=== PATIENT | female | born 1935 | race Caucasian/White ===

== ENCOUNTER → 2017-06-26 | Day surgery (SDC) | payer OTHER ==
[2017-05-26 13:39] VITALS: Ht 166.4 cm; Wt 56.8 kg
[~2017-06-26] VITALS: Ht 166.4 cm; Wt 56.8 kg
[~2017-06-26] MED LIST: 500ML BSS 0.3ML EPI 1:1000PF IRRIG ONE; ACETAMINOPHEN 325 MG TAB PO PRN; ALPR-411 PO; AMVISC PLUS 0.8ML SYRINGE INT OCU ONE; APR25 PO; ASPI81TA28 PO; ATROPINE SULFATE 0.1 MG/ML 5ML SYR IV PRN; BISA1TAB15 PO; BRIMONIDINE TART 0.2% OP SOLN PER DROP CHARGE ONE; BSS FLUSH ONE; CARV12.5 PO; CITA20TA9 PO; CLON0.1T12 PO; CLOP1TAB15 PO; CLR10 PO; DOCU-94 PO; ENDOCOAT 0.85ML SYRINGE INT OCU ONE; EpHEDrine SULFATE INJ 50 MG/ML AMP IV PRN; EpINEphrine INJ 1MG/ML AMP 1 MG/ML AMP ONE; FEXO1TAB49 PO; FLUT0.15 NAE; LACTATED RINGER'S 1000ML 500 ML IV SCH; LEVO125T72 PO; LIDOCAINE 4% OP SOLN DROP CHARGE ONE; LIDOCAINE 4% OP SOLN DROP CHARGE OPR SCH; LIDOCAINE HCL 1% MPF 2 ML VIAL ONE; LIDOCAINE HCL 2% 2 ML VIAL (20MG/ML) ONE; LOSA100T65 PO; MIDAZOLAM HCL 1 MG/ML 2ML VIAL ONE; MOXIFLOXACIN OPH SOLN PER DROP CHARGE ONE; NTRGSL/4 UT; ONDANSETRON INJ 2 MG/ML 2 ML VIAL IV PRN; OXYC-609 PO; PANT40TA PO; POVIDONE-IODINE OP SOLN 30 ML BTL ONE; PROPARACAINE 0.5% OP SOLN PER DROP CHARGE OPR SCH; PROPOFOL IV EMULSION 10 MG/ML 20 ML VIAL IV ONE; ROSU20TA PO; SPIR25TA PO; TOBRAMYCIN/DEXAMETHASONE OPH OINT PER APPLN CHARGE ONE; VNTHFA/IN INH
[2017-06-26] MEDS: PHENYLEPHRINE HCL 2.5% OP SOLN PER DROP CHARGE OPR SCH ×2 (09:57→10:02)
[2017-06-26] MEDS: TROPICAMIDE 1% OP SOLN PER DROP CHARGE OPR SCH ×2 (09:58→10:03)
[2017-06-26] MEDS: CYCLOPENTOLATE HCL 1% OP SOLN PER DROP CHARGE OPR SCH ×2 (09:59→10:04)
[2017-06-26] MEDS: KETOROLAC 0.5% OP SOLN PER DROP CHARGE OPR SCH ×2 (10:00→10:05)
[2017-06-26] MEDS: MOXIFLOXACIN OPH SOLN PER DROP CHARGE OPR SCH ×2 (10:01→10:14)
--- NOTE | 2017-06-26 10:41 | History & Physical Bridge - SC ---
H&P Re-Evaluation Bridge Note: I have examined the patient, reviewed the History & Physical and in the interval since the performance of the History & Physical I have noted the following changes of clinical significance: No changes noted
--- NOTE | 2017-06-26 12:23 | Discharge Instructions-SurgCtr ---
Discharge Instructions Date of Service Jun 26, 2017. Visit Reason for Visit: Cataract Right Eye Discharge Discharge Diagnosis / Problem: cataract right eye Discharge Goals Goal(s): Improve function Activity Recommendations Activity Limitations: per Instructions/Follow-up section Lifting Limitations: no more than 5 pounds Anesthesia . Post Anesthesia Instructions: If you have had General Anesthesia or IV Sedation: * Do not drive today. * Resume driving when surgeon permits. * Do not make important decisions or sign legal documents today. * Call surgeon for: 1. Temperature elevations greater than 101 degrees F. 2. Uncontrollable pain. 3. Excessive bleeding. 4. Persistent nausea and vomiting. 5. Medication intolerance (nausea, vomiting or rash). * For nausea and vomiting use only clear liquids such as: tea, soda, bouillon until nausea subsides, then gradually increase diet as tolerated. * If you have any concerns or questions, call your surgeon's office. If physician is unavailable and it is an emergency, call 911 or go to the nearest emergency room. . Instructions / Follow-Up Instructions / Follow-Up ACTIVITY RECOMMENDATIONS: * Light activities * You may walk outside, read, watch television. * Mild irritation and blurred vision are common for the first few days, redness around the white part of the eye is common. MEDICATIONS: Resume previous medications unless instructed otherwise by your surgeon. Eye drops (today and tomorrow): Polytrim - one drop in operative eye every 2 hours while awake Prednisolone 1% - one drop in operative eye every 2 hours while awake Bromfenac - one drop in operative eye once daily SPECIAL CARE INSTRUCTIONS: * If any problems or concerns, please call Dr. Browne's office at . * Keep plastic shield taped over eye to sleep at night. * Keep plastic shield taped over eye except to administer eye drops. * Keep plastic shield on until office visit the following day. FOLLOW UP VISIT: Follow-up with Dr. Browne in the [place] office as scheduled. If not already scheduled, please call the office at . Diet Recommendations Home Diet: resume previous diet Procedures Procedures Performed: Right Cataract Phacoemulsification With Intraocular Lens Implant Pending Studies Studies pending at discharge: no Medical Emergencies . Who to Call and When: Medical Emergencies: If at any time you feel your situation is an emergency, please call 911 immediately. . Non-Emergent Contact Non-Emergency issues call your: [employer] . . "Provider Documentation" section prepared by Stephon Browne. .
[2017-06-26 12:25] VITALS: TEMP 36.7
--- NOTE | 2017-06-26 12:25 | [facility] Operative Report ---
Operative Report Operative Date Jun 26, 2017. Pre-Operative Diagnosis Right Eye Cataract Post-Operative Diagnosis Same Procedure(s) Performed Right Cataract Phacoemulsification With Intraocular Lens Implant Surgeon Dr Browne Loading Unit Operator Powder Charging Surgeon(s) None Estimated Blood Loss 0ml Findings cataract right eye Fluids (cc crystalloids) see anesthesia record Specimens None Drains none Anesthesia local with sedation Complication(s) None Disposition Recovery Room / PACU Implants [id number] 16.5 Indications decreased vision right eye Description of Procedure After informed consent was obtained in the holding area the patient was wheeled back to the operating room where cardiac monitoring leads and oxygen by nasal cannula was administered by Anesthesia. Gentle IV sedation was given, and the patient's right eye eye was prepped and draped in usual sterile fashion. A wire lid speculum was placed into the right eye and the operating microscope was swung into position. Using 0.12 forceps and a Supersharp blade a paracentesis port was made 2 o'clock hours away from the 9 o'clock position of the patient's right eye. 1% non-preserved Lidocaine was then injected into the anterior chamber for anesthesia. A 2.0 mm keratotome blade was then used to make a shelved clear corneal incision at the 9 o'clock position of the right eye. Amvisc was injected into the anterior chamber and a cystotome and Utrata forceps were used to perform a curvilinear capsulorrhexis. BSS on a hydrodissection cannula was used to hydrodissect the lens nucleus away from the capsular bag. The phacoemulsification handpiece was then used in a stop and chop fashion to remove the lens nucleus. The irrigation and aspiration handpiece was then used to remove the residual cortical material. Amvisc was injected into the capsular bag and anterior chamber and a Bausch [employer] Lomb MX60 16.5 Diopter intraocular lens was injected into the capsular bag. Irrigation and aspiration handpiece was used to remove the residual viscoelastic material. The wounds were hydrated and noted to be watertight. The wire lid speculum was removed from the eye. Vigamox, Brimonidine, and TobraDex ointment were placed on the eye and it was shielded. It should be noted that EndoCoat was used extensively during the case to protect the cornea endothelium. DISPOSITION: The patient tolerated the procedure well and was wheeled to the post anesthesia care unit in stable condition. I attest to the content of the Intraoperative Record and any orders documented therein. Any exceptions are noted below. I attest to the content of the Intraoperative Record and any orders documented therein. Any exceptions are noted below.
--- NOTE | 2017-06-26 12:44 | Anesthesia Progress Nt - [facility] ---
Anesthesia Post Op Note Date & Time Jun 26, 2017 at 12:44 Vital Signs Pain Intensity: 0 Vital Signs Past 12 Hours Date Time Temp Pulse Resp B/P (MAP) Pulse Ox O2 Delivery O2 Flow Rate FiO2 06/26/17 12:25 36.7 61 16 163/70 (101) 98 Room Air 06/26/17 09:46 36.9 77 18 132/70 (90) 97 Room Air Notes Mental Status: alert / awake / arousable, participated in evaluation Pt Amnestic to Procedure: Yes Nausea / Vomiting: adequately controlled Pain: adequately controlled Airway Patency, RR, SpO2: stable & adequate BP & HR: stable & adequate Hydration State: stable & adequate Anesthetic Complications: no major complications apparent
[2017-06-26 12:54] VITALS: BP 187/69; PULSE 61; O2SAT 97
== END | disposition home or self-care (01) ==
LOC: X.SURG 09:21
PROVIDERS: ATTEND Ophthalmology
DX: H25.11 Age-related nuclear cataract, right eye (principal); I10 Essential (primary) hypertension; E03.9 Hypothyroidism, unspecified; Z79.82 Long term (current) use of aspirin; Z79.899 Other long term (current) drug therapy

== ENCOUNTER 2021-05-04 19:07 | Inpatient (IN) ==
[2021-05-04] MEDS ORDERED: ACETAMINOPHEN 1,000 MG/100 ML VIAL IV STA (19:40)
[2021-05-04] MEDS ORDERED: SODIUM CHLORIDE 0.9% 1000ML 1,000 ML IV SCH (19:45)
[2021-05-04 20:23] LABS: Basophils # (auto) 0.03 K/uL (0-0.2); Basophils % (auto) 0.3 %; Eosinophils # (auto) 0.03 K/uL (0-0.5); Eosinophils % (auto) 0.3 %; Hematocrit (blood only) 39.6 % (37-47); Hemoglobin 12.6 g/dL (12.0-16.0); Immature Granulocytes # (auto) 0.09 K/uL (0.00-0.02); Immature Granulocytes % (auto) 0.9 %; Lymphocytes # (auto) 1.35 K/uL (1.2-3.4); Lymphocytes % (auto) 13.4 %; Mean Corpuscular Hgb Conc 31.8 g/dL (32-36); Mean Corpuscular Volume 94.3 fL (80-100); Mean Platelet Volume 9.9 fL (7.4-10.4); Monocytes # (auto) 0.81 K/uL (0.11-0.59); Monocytes % (auto) 8.1 %; Neutrophils # (auto) 7.73 K/uL (1.4-6.5); Platelet Count 261 K/uL (130-400); RDW Standard Deviation 51.4 fL (36.4-46.3); White Blood Count 10.04 K/uL (4.8-10.8)
[2021-05-04 20:28] LABS: INR 1.1 (0.9-1.1); Partial Thromboplastin Ratio 0.9; Partial Thromboplastin Time 24.4 Seconds (21.0-31.0); Prothrombin Time 10.9 Seconds (9.0-12.0)
--- NOTE | 2021-05-04 20:32 | XRay Report ---
XR chest 1V portable CLINICAL HISTORY: hip fx COMPARISON STUDY: Chest radiograph March 18, 2021. FINDINGS: Incidental note is made of degenerative changes of both shoulders and elevation of the don ral heads, greater on the right. Cardiomegaly is unchanged. There is pulmonary vascular congestion. A suspected small left pleural effusion is noted. IMPRESSION: 1. Small left pleural effusion with mild left basilar opacity. 2. Cardiomegaly. Pulmonary vascular congestion without overt pulmonary edema. ACT 112: Negative or not required by law. Electronically signed by: Lucian Don M.D. 05/04/2021 8:31 PM
[2021-05-04 20:42] LABS: Alanine Aminotransferase 27 U/L (12-78); Albumin Level 3.5 gm/dl (3.4-5.0); Aspartate Aminotransferase 23 U/L (15-37); BUN Creatinine Ratio 30.5 (10-20); Blood Urea Nitrogen 23 mg/dl (7-18); Calcium 8.6 mg/dl (8.5-10.1); Carbon Dioxide 26 mmol/L (21-32); Chloride 109 mmol/L (98-107); Est GFR (African American) 84.8 ml/min; Est GFR (Non-African American) 73.2 ml/min; Glucose 95 mg/dl (70-99); Potassium 4.2 mmol/L (3.5-5.1); Sodium 141 mmol/L (136-145)
[2021-05-04 20:45] LABS: Albumin Globulin Ratio 0.9 (0.9-2); Alkaline Phosphatase 75 U/L (45-117); Bilirubin,Total 0.6 mg/dl (0.2-1); Globulin 3.9 gm/dl (2.5-4.0); Total Protein 7.4 gm/dl (6.4-8.2)
--- NOTE | 2021-05-04 21:22 | CT Scan Report ---
CT pelvis wo con CLINICAL HISTORY: L hip deformity, fall, dementia. COMPARISON STUDY: CT of the pelvis March 18, 2021. TECHNIQUE: Axial images of the pelvis and hips were obtained without IV contrast. Sagittal and bond l reconstructions were viewed. Automated exposure control was utilized for the study. A dose lowerin g technique was utilized adhering to the principles of ALARA. 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 Note is made of an ac saxman moderately displaced, comminuted intertrochanteric fracture of the left femur which is new since CT of March 18, 2021. Adjacent intramuscular hemorrhage is present. No proximal right femoral fracture is noted. Old right ischiopubic ring fractures are noted. These are unchanged unchanged since prior examination. Old bilateral sacral ala fractures are present. Sigmoid diverticulosis is noted without evidence for acute diverticulitis. IMPRESSION: 1. Acute moderately displaced, comminuted intertrochanteric fracture of the left femur. Adjacent intr amuscular hemorrhage. No additional acute fractures within the pelvis or hips. 2. Old right ischiopubic ring fractures with extensive bone formation and deformity at the symphysis pubis. 3. Old bilateral sacral fractures. 4. 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 ACT 112: Negative or not required by law. Electronically signed by: Lucian Don M.D. 05/04/2021 9:21 PM
[2021-05-04 23:00] LABS: Appearance Urine Clear (Clear); Bacteria Urine Automated Negative (Negative); Bilirubin Urine Negative (Negative); Blood Urine Negative (Negative); Cast Urine Automated 0 /lpf (0-5); Color Urine Yellow; Epithelial Cell Urine Auto 20-30 /lpf (0-5); Glucose Urine UA Negative (Negative); Ketones Urine 1+ (Negative); Leukocyte Esterase Urine 1+ (Negative); Nitrite Urine Negative (Negative); Protein Urine Negative (Negative); Specific Gravity Urine 1.017 (1.000-1.030); Urobilinogen Urine Negative (Negative)
[2021-05-05] MEDS ORDERED: ONDANSETRON INJ 2 MG/ML 2 ML VIAL IV PRN ×2 (02:04→16:57)
[2021-05-05] MEDS ORDERED: ACETAMINOPHEN 325 MG TAB PO PRN (02:04)
[2021-05-05] MEDS ORDERED: POLYETHYLENE (MIRALAX) 17 GM PACK PO PRN (02:04)
--- NOTE | 2021-05-05 02:26 | History and Physical Report ---
DATE OF ADMISSION: 05/04/2021 CHIEF COMPLAINT: Status post fall and left hip, left hip fracture. HISTORY OF PRESENT ILLNESS: This is an 85-year-old female with past medical history significant for CAD, status post stent, hypertension, hypothyroidism, depression, anxiety,hx of breast cancer who lives at [facility], presents with a fall and left hip fracture. Daughter is in the room. As per the daughter, the patient has severe dementia, she can recognize family members, but 90% of the time, she does not make sense. She is on soft diet and she is supposed to walk with a walker, but she forgets to use the walker and she is falling frequentlyl. She had multiple falls. On 03/18/2021, she was in our ER and found to have chronic left and subacute sacral fractures and also old ischiopubic fractures, which are chronic, and today again, she fell and presents with left hip fracture. The patient is currently resting comfortably. The patient is very hard of hearing and has dementia, very poor historian. Denies any pain currently. As per daughter, there is no recent fever or chills. No recent cough. No recent nausea or vomiting. No diarrhea or constipation. No pain. Daughter states since January, the patient has lost a lot of weight, almost 7-8 pounds per month. ALLERGIES: ENALAPRIL, NAPROXEN. PAST MEDICAL HISTORY: As mentioned above. PAST SURGICAL HISTORY: As per daughter, the patient had cholecystectomy, right knee surgery, status post cardiac catheterization and stent placements. MEDICATIONS: The patient is on Tylenol 650 mg p.o. q. 6 hours p.r.n., Xanax 0.5 mg p.o. t.i.d., Norvasc 5 mg p.o. daily, aspirin 81 mg p.o. daily, buspirone 5 mg p.o. b.i.d., Coreg 6.25 mg p.o. b.i.d., vitamin D 25 mcg p.o. daily, citalopram 20 mg p.o. daily, Colace 100 mg p.o. b.i.d., levothyroxine 125 mcg p.o. daily, melatonin 3 mg p.o. at bedtime. FAMILY HISTORY: Noncontributory. No significant family history as per the daughter. SOCIAL HISTORY: No smoking, no alcohol. Currently living at [facility]. REVIEW OF SYSTEMS: As per HPI. Could not get complete review of system, the patient has severe dementia and hard of hearing. PHYSICAL EXAMINATION: GENERAL: The patient is old and frail, not in acute distress. VITAL SIGNS: Temperature 37.1, pulse 84, respiratory rate 15, blood pressure 117/88, oxygen 96% on room air. HEENT: Pupils equal, round and reactive to light. Oral mucosa moist. NECK: No JVD, no neck masses. CARDIOVASCULAR: S1 and S2 heard. Regular rate and rhythm. No murmur, no gallop. RESPIRATORY SYSTEM: Normal AP diameter. No accessory muscle use. No wheezing, no crackles. ABDOMEN: Soft, bowel sounds present, nontender, nondistended. CENTRAL NERVOUS SYSTEM: Alert and awake. Obeys simple commands. No facial droop seen. Speech is clear. EXTREMITIES: Left lower extremity shortened and externally rotated. No edema, no erythema seen. LABORATORY DATA: WBC 10.04, hemoglobin 12.6, hematocrit 39.6, platelets 261. PT 10.9, INR 1.1, APTT 24.4. Sodium 141, potassium 4.2, chloride 109, bicarbonate 26, BUN 23, creatinine 0.75, serum glucose 95, calcium 8.6, total bilirubin 0.6, AST 23, ALT 27, alkaline phosphatase 75. Urinalysis, +1 ketones, +1 leukocyte esterase. SARS-CoV-2 PCR negative. Chest x-ray, small left pleural effusion with mild left basilar opacity. Pelvic CT: Acute moderately displaced comminuted intertrochanteric fracture of the left femur, adjacent intramuscular hemorrhage. Old right ischiopubic ring fractures with extensive bone formation deformity of the symphysis pubis. Old bilateral sacral fractures, possible avascular necrosis of the femoral heads. EKG: Sinus rhythm with PACs and aberrant conduction at the rate of 79. ASSESSMENT AND PLAN: This is an 85-year-old female who presents with fall. 1. Fall and left hip fracture. . As per the daughter, the patient also had breast cancer diagnosed on right sided breast in November of 2020 and currently in hospice care, they are not pursuing any treatment. Daughter states questionable mass in the brain in February CAT scan, but they are not pursuing any treatment, currently in hospice care. Daughter wants to discuss with orthopedics about surgery. The patient should be at least moderate to high risk for infection because of her multiple comorbid conditions. We will keep her n.p.o., IV fluids, pain control, monitor in the medical floor. 2. History of coronary artery disease, status post stent. Continue Coreg, aspirin. 3. History of hypertension: Continue amlodipine and Coreg. We will monitor blood pressure. 4. Hypothyroidism. Continue Synthroid. 5. History of anxiety and depression: Continue citalopram and buspirone. 6. History of breast mass and also brain mass. Family is not pursuing any further evaluation and treatments, currently under hospice care at [facility]. 7. Severe dementia. Monitor for any delirium. The patient is on soft diet. Supposed to walk with a walker. 8. Deep venous thrombosis prophylaxis. Could not place on anticoagulation because of planned procedure and could not put the patient on any sequential compression devices because of hip fracture. To Place on anticoagulation as soon as when feasible. DISPOSITION: Admit to medical floor. PT/OT prior to discharge. Social service to help with discharge planning. CODE STATUS: DNR/DNI as per discussion with the daughter. Job ID: [id number] MTDD
[2021-05-05] MEDS: D5W AND NSS 1,000 ML IV SCH ×2 (02:34→14:55)
[2021-05-05] MEDS: carvediloL 6.25 MG TAB PO SCH ×3 (03:46→20:59)
[2021-05-05] MEDS: LEVOTHYROXINE SODIUM 125 MCG TABLET PO SCH (03:46)
[2021-05-05] MEDS: MoRPHine SULFATE 2 MG/ML CARP IV PRN ×2 (03:49→20:57)
[2021-05-05 06:20] LABS: Basophils # (auto) 0.02 K/uL (0-0.2); Basophils % (auto) 0.2 %; Hematocrit (blood only) 34.5 % (37-47); Hemoglobin 11.2 g/dL (12.0-16.0); Immature Granulocytes # (auto) 0.05 K/uL (0.00-0.02); Immature Granulocytes % (auto) 0.6 %; Lymphocytes # (auto) 0.99 K/uL (1.2-3.4); Lymphocytes % (auto) 11.7 %; Mean Corpuscular Hemoglobin 30.4 pg (25-34); Mean Corpuscular Hgb Conc 32.5 g/dL (32-36); Mean Corpuscular Volume 93.5 fL (80-100); Mean Platelet Volume 9.9 fL (7.4-10.4); Monocytes # (auto) 1.04 K/uL (0.11-0.59); Monocytes % (auto) 12.2 %; Neutrophils # (auto) 6.39 K/uL (1.4-6.5); Neutrophils % (auto) 75.3 %; Platelet Count 228 K/uL (130-400); RDW Coefficient of Variation 14.7 % (11.5-14.5); RDW Standard Deviation 50.3 fL (36.4-46.3); Red Blood Count 3.69 M/uL (4.2-5.4); White Blood Count 8.49 K/uL (4.8-10.8)
[2021-05-05 06:52] LABS: BUN Creatinine Ratio 25.9 (10-20); Blood Urea Nitrogen 20 mg/dl (7-18); Calcium 8.7 mg/dl (8.5-10.1); Carbon Dioxide 26 mmol/L (21-32); Chloride 108 mmol/L (98-107); Est GFR (African American) 82.2 ml/min; Est GFR (Non-African American) 70.9 ml/min; Glucose 151 mg/dl (70-99); Potassium 3.7 mmol/L (3.5-5.1); Sodium 140 mmol/L (136-145)
--- NOTE | 2021-05-05 08:31 | Orthopedic Consultation ---
Date of Consultation May 05, 2021 Assessment & Plan (1) Closed intertrochanteric fracture of left hip: We have ordered a left femur film to further assess the fracture. Patient will likely require left TFN pending review of these x-rays. I have discussed the patient's care with her daughter this morning. The patient was ambulating with a walker at her [facility] facility. They would like to get her back to that point if possible. We discussed that other means of treating this conservatively would be bedrest for 4 to 6 weeks and risks involved with that. They are opting for surgical intervention at this time. I have discussed the case with Dr. Finney who will see the patient later this morning for evaluation. Consult will be placed for anesthesia as well. We will keep the patient n.p.o. for now. Review pending femur films for final decision for fixation of this fracture. Thank you for this consult. Addendum: 10:44; Xrays reviewed by myself and Dr. Field. Plan for Left TFN later today. Supervising Physician Co-Signing Physician Notes Patient seen and examined. Agree with DAVID Godoy's note as above. She has a significantly displaced left intertrochanteric femur fracture after ground-level fall. I would recommend cephalomedullary nailing to stabilize this fracture, reduce pain, and improve mobility. Also noted on CT scan is a large subchondral cyst in the femoral head, likely secondary to severe osteoarthritis of the hip joint; this may require alteration of the helical blade placement intraoperatively. Patient is significantly demented, and unable to consent to surgery. The procedure was discussed with the patient's daughter and power of exit booth agent, Wendi Carvalho, who is in agreement to proceed with surgery. Risks, benefits, and alternatives of surgery were explained in detail. The surgical procedure, as well as postoperative recovery and rehabilitation, was also explained in detail. Risks include bleeding; infection; damage to surrounding structures such as nerves, blood vessels, and tendons that run in the area; persistent pain or stiffness; nonunion; malunion; hardware failure; painful prominent hardware requiring removal; or need for further surgery. The patient's daughter understands all of this and wishes to proceed with surgery. Preoperative workup was completed today, and informed consent was obtained. History of Present Illness Reason for Consultation: Left hip fracture Attending Physician: Joel Finney MD History of Present Illness This is an 85-year-old female with past medical history significant for CAD, status post stent, hypertension, hypothyroidism, depression, anxiety,hx of breast cancer who lives at [facility], presents with a fall and left hip fracture. History being taken from the chart and from the patient's daughter. Patient has been residing at [facility] on hospice care with diagnosis of breast cancer. Family has decided to not have this treated. She also was noted to have a small hypodense lesion on a CT of her head during her last ER visit in February with MRI or being recommended for follow-up. Family has stated that they are not treating this as well. She is currently a DNR status. The daughter states that she is able to ambulate with a walker but has been having some balance issues. She has had frequent falls of late. She is supposed to use the walker but oftentimes forgets to use the walker and has a fall. Patient has a history of dementia and can recognize family faces but for the most part is pleasantly confused. Patient had fallen yesterday and was obviously having discomfort in the left lower extremity. She was brought to the [facility]. CT scan of the pelvis was ordered and showed a comminuted intertrochanteric hip fracture. She was admitted under [facility] service and we have been asked to see her for her hip fracture. Currently she is lying in bed awake but pleasantly confused. She only answers a few questions at this time. She follows some commands minimally. She does not appear to be in any distress at this time. Allergies Allergy/AdvReac Type Severity Reaction Status Date / Time enalapril Allergy Unknown Verified 05/04/21 19:44 naproxen [From Naprosyn] Allergy Unknown Verified 05/04/21 19:44 Home Medications Medication Instructions Recorded Confirmed Type docusate sodium 100 mg capsule 100 mg PO BID #60 cap 03/19/21 05/04/21 Rx (Colace) acetaminophen 325 mg tablet 650 mg PO Q6 PRN MDD 3g 05/04/21 05/04/21 History acetaminophen 325 mg tablet 650 mg PO Q6 PRN MDD 3g 05/04/21 05/04/21 History alprazolam 0.5 mg tablet (Xanax) 0.5 mg PO TID 05/04/21 05/04/21 History amlodipine 5 mg tablet (Norvasc) 5 mg PO DAILY 05/04/21 05/04/21 History aspirin 81 mg chewable tablet 81 mg PO DAILY 05/04/21 05/04/21 History buspirone 5 mg tablet 5 mg PO BID 05/04/21 05/04/21 History carvedilol 6.25 mg tablet (Coreg) 6.25 mg PO BID 05/04/21 05/04/21 History cholecalciferol (vitamin D3) 25 25 mcg PO DAILY 05/04/21 05/04/21 History mcg (1,000 unit) tablet (Vitamin D3) citalopram 10 mg tablet 10 mg PO DAILY 05/04/21 05/04/21 History citalopram 20 mg tablet 20 mg PO DAILY 05/04/21 05/04/21 History levothyroxine 125 mcg tablet 125 mcg PO QAM 05/04/21 05/04/21 History melatonin 3 mg tablet 3 mg PO HS 05/04/21 05/04/21 History Patient History Medical History (Updated 05/05/21 @ 16:19 by Joel Finney MD) CAD (coronary artery disease) Depression Hypertension Hypothyroidism Surgical History History of cardiac catheterization History of cholecystectomy History of total left knee replacement (TKR) Social History Smoking Status: Never smoker Second Hand Exposure: No; Do You Dip or Chew Tobacco: No; Hx Alcohol Use: No Hx Substance Use: No Preferred Language: Albanian Communication Ability: Impaired Conveyor Technician Required: No Beliefs That Will Affect Care: None marital status: Current Living Situation: [facility] Current Living Situation Comment: dementia unit Other Information That Helps Us Care for You: No Feels Safe at Home: No Is there a partner from a previous relationship who is making you feel unsafe now?: No Any Concerns about Your Family Situation: No Would You Like to Speak to Someone About Your Situation: No Assistive Devices: Walker Assistive Devices Comment: all debices at [facility]dc Review of Systems Review of Systems: Unobtainable due to cognitive status Physical Exam Physical Exam: On examination, the patient is lying in bed awake and pleasantly confused. When asked how she is feeling, she states, "I feel fine." When asked if she is having pain in her left hip, she does not answer. She remains pleasant during the exam. On examination of her left lower extremity, she has the hip flexed at approximately 40 degrees with the left knee flexed at about 70 degrees. No range of motion of the left hip is done secondary to fracture. Stabilizing the distal femur, I am able to take her through some very minimal gentle range of motion of the left knee without apparent discomfort. She has no pain on palpation of the left knee. There is a well-healed scar from previous surgery over the knee. I am able to take her through gentle range of motion of her left ankle and she does move the ankle and toes just a little bit on her own. Right lower extremity appears benign and she does not appear to have any pain with range of motion of her hip, knee, ankle. Dorsalis pedis pulses are weak bilaterally. Both feet are warm to the touch and have good capillary refill. Upper extremities appear to be without injury. Palpation of the shoulders, elbows, and wrists appear to be nontender. There appears to be no gross motor or sensory loss seen at this time. Results & Data ([facility]) Vital Signs (Past 12 Hours) Vital Signs Temp Pulse Pulse Resp BP BP Pulse Ox 05/05/21 07:25 36.7 C 76 16 184/84 H 96 05/05/21 03:43 187/96 H 05/05/21 02:12 37.4 C 89 16 207/104 H 96 05/05/21 01:30 37.4 C 89 16 207/104 H 96 05/05/21 00:58 86 16 152/100 H 96 05/04/21 21:32 84 15 178/88 H 05/04/21 21:00 90 12 05/04/21 20:40 75 20 96 Diagnostic Findings Patient: NORMAN MIDDLETON Date: 05/04/21MR#: [id number] PALLAVI ESPINOZAAcct ID:[id number]: HEARTHSIDEBirth Date: 1935City Zip: [place], [place] [address]Umm: 85Location: EDSex: FRoom/Bed:Att Phy:Diagnosis: Hip PainPri Phy: HeartVerona birdomService Date: 05/04/21[facility] Phy:Interpreting Phy: Lucian Don MDAdmit Phy: Ordering Phy: Angela Freitas M.D. cc: ~ CT pelvis wo con CLINICAL HISTORY: L hip deformity, fall, dementia. COMPARISON STUDY: CT of the pelvis March 18, 2021. TECHNIQUE: Axial images of the pelvis and hips were obtained without IV contrast. Sagittal and coronal reconstructions were viewed. Automated exposure control was utilized for the study. A dose lowering technique was utilized adhering to the principles of ALARA. 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 Note is made of an acute moderately displaced, comminuted intertrochanteric fracture of the left femur which is new since CT of March 18, 2021. Adjacent intramuscular hemorrhage is present. No proximal right femoral fracture is noted. Old right ischiopubic ring fractures are noted. These are unchanged uncha nged since prior examination. Old bilateral sacral ala fractures are present. Sigmoid diverticulosis is noted without evidence for acute diverticulitis. IMPRESSION: 1. Acute moderately displaced, comminuted intertrochanteric fracture of the left femur. Adjacent intramuscular hemorrhage. No additional acute fractures within the pelvis or hips. 2. Old right ischiopubic ring fractures with extensive bone formation and deformity at the symphysis pubis. 3. Old bilateral sacral fractures. 4. 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
[2021-05-05] MEDS: DOCUSATE SODIUM 100 MG CAP PO SCH ×2 (08:47→20:59)
[2021-05-05] MEDS: busPIRone 5 MG TAB PO SCH ×2 (08:47→20:59)
[2021-05-05] MEDS: CITALOPRAM 20 MG TAB PO SCH (08:47)
[2021-05-05] MEDS: amLODIPine BESYLATE 5 MG TAB PO SCH (08:47)
[2021-05-05] MEDS: ALPRAZolam 0.5 MG TABLET PO SCH ×3 (08:49→20:57)
[2021-05-05] MEDS ORDERED: ASPIRIN 81 MG CHEW PO SCH (09:00)
[2021-05-05] MEDS: CHOLECALCIFEROL 1,000 UNITS 25 MCG TAB PO SCH (09:13)
--- NOTE | 2021-05-05 10:40 | XRay Report ---
XR femur LT 2V routine CLINICAL HISTORY: left hip fx COMPARISON: CT of the pelvis and hips May 04, 2021. FINDINGS: Note is made of an acute comminuted displaced intertrochanteric fracture of the left femur . Angulation at the level of the fracture is noted. No additional acute fractures within the left fem ur are noted. Left knee arthroplasty is intact. Moderate to severe osteoarthritis of the left hip is noted. Subchondral lucency within the left femoral head is present. IMPRESSION: 1. Acute comminuted displaced intertrochanteric fracture of the left femur. 2. Moderate to severe left hip osteoarthritis. Subchondral lucency within the left femoral head which could reflect avascular necrosis or subacute to chronic subchondral fracture. ACT 112: Negative or not required by law. Electronically signed by: Lucian Don M.D. 05/05/2021 10:39 AM
--- NOTE | 2021-05-05 14:07 | Anesthesiology Consultation ---
Date of Service May 05, 2021 Assessment & Plan (1) Encounter for pre-operative examination: Chart Review Chart Review: Acceptable Risk for Surgery and Patient NOT seen in Pre Admission Testing Consults Requested none History Surgery Operation Date: 05/05/21 08:20 Proposed Procedures p Left Troch Nail - Arnulfo Field M.D. Height/Weight Weight: 53.5 kg Allergies Allergy/AdvReac Type Severity Reaction Status Date / Time enalapril Allergy Unknown Verified 05/04/21 19:44 naproxen [From Naprosyn] Allergy Unknown Verified 05/04/21 19:44 Medications Home Medications Medication Instructions Recorded Confirmed Last Taken docusate sodium 100 mg capsule 100 mg PO BID #60 cap 03/19/21 05/04/21 05/04/21 08:00 (Colace) acetaminophen 325 mg tablet 650 mg PO Q6 PRN MDD 3g 05/04/21 05/04/21 Unknown acetaminophen 325 mg tablet 650 mg PO Q6 PRN MDD 3g 05/04/21 05/04/21 Unknown alprazolam 0.5 mg tablet (Xanax) 0.5 mg PO TID 05/04/21 05/04/21 05/04/21 13:00 amlodipine 5 mg tablet (Norvasc) 5 mg PO DAILY 05/04/21 05/04/21 05/04/21 08:00 aspirin 81 mg chewable tablet 81 mg PO DAILY 05/04/21 05/04/21 05/04/21 08:00 buspirone 5 mg tablet 5 mg PO BID 05/04/21 05/04/21 05/04/21 08:00 carvedilol 6.25 mg tablet (Coreg) 6.25 mg PO BID 05/04/21 05/04/21 05/04/21 17:00 cholecalciferol (vitamin D3) 25 25 mcg PO DAILY 05/04/21 05/04/21 05/04/21 08:00 mcg (1,000 unit) tablet (Vitamin D3) citalopram 10 mg tablet 10 mg PO DAILY 05/04/21 05/04/21 05/04/21 08:00 citalopram 20 mg tablet 20 mg PO DAILY 05/04/21 05/04/21 05/04/21 08:00 levothyroxine 125 mcg tablet 125 mcg PO QAM 0905/04/21 05/04/21 05:00 melatonin 3 mg tablet 3 mg PO HS 05/04/21 05/04/21 05/04/21 18:00 Active Medications Generic Name Dose Route Start Last Admin Trade Name Fox PRN Reason Stop Dose Admin Alprazolam 0.5 mg 05/05/21 09:00 05/05/21 14:55 Alprazolam 0.5 Mg Tablet PO 06/04/21 08:59 0.5 mg TID LLOYD Administration Amlodipine Besylate 5 mg 05/05/21 09:00 05/05/21 08:47 Amlodipine Besylate 5 Mg Tab PO 06/04/21 08:59 5 mg DAILY LLOYD Administration Aspirin 81 mg 05/05/21 09:00 05/05/21 08:47 Aspirin 81 Mg Chew PO 06/04/21 08:59 81 mg DAILY LLOYD Administration Buspirone HCl 5 mg 05/05/21 09:00 05/05/21 08:47 Buspirone 5 Mg Tab PO 06/04/21 08:59 5 mg BID LLOYD Administration Carvedilol 6.25 mg 05/05/21 02:04 05/05/21 08:47 Carvedilol 6.25 Mg Tab PO 06/04/21 02:03 6.25 mg BID LLOYD Administration Citalopram Hydrobromide 20 mg 05/05/21 09:00 05/05/21 08:47 Citalopram 20 Mg Tab PO 06/04/21 08:59 20 mg DAILY LLOYD Administration Docusate Sodium 100 mg 05/05/21 09:00 05/05/21 08:47 Docusate Sodium 100 Mg Cap PO 06/04/21 08:59 100 mg BID LLOYD Administration Dextrose/Sodium Chloride 1,000 mls @ 75 mls/hr 05/05/21 02:04 05/05/21 14:55 D5w And Nss IV 06/04/21 02:03 75 mls/hr .[id number] LLOYD Administration Levothyroxine Sodium 125 mcg 05/05/21 06:30 05/05/21 03:46 Levothyroxine Sodium 125 Mcg Tablet PO 06/04/21 06:29 125 mcg DAILYBB LLOYD Administration Morphine Sulfate 2 mg 05/05/21 02:04 05/05/21 03:49 Morphine Sulfate 2 Mg/Ml Carp IV 05/19/21 02:03 2 mg Q3H PRN Administration Pain Vitamin D 1,000 units 05/05/21 09:00 05/05/21 09:13 Cholecalciferol 1,000 Units 25 Mcg Tab PO 06/04/21 08:59 1,000 units DAILY LLOYD Administration NPO Date Last Intake of Fluids: 05/05/21 Date Last Intake of Solids: 05/05/21 Past Medical History Medical History (Updated 05/05/21 @ 16:19 by Joel Finney MD) CAD (coronary artery disease) Depression Hypertension Hypothyroidism Past Surgical History Surgical History History of cardiac catheterization History of cholecystectomy History of total left knee replacement (TKR) Social History Smoking Status: Never smoker Do You Dip or Chew Tobacco: No Hx Alcohol Use: No Hx Substance Use: No substance use type: does not use Physical Exam Vital Signs Last Vital Signs Temp 36.4 C L 05/05/21 15:44 Pulse 65 05/05/21 15:44 Resp 16 05/05/21 15:44 BP 158/68 H 05/05/21 15:44 Pulse Ox 95 05/05/21 15:44 Testing Laboratory Results 05/05/21 05:31 05/05/21 05:31 PT 10.9 Seconds (9.0-12.0) 05/04/21 19:56 INR 1.1 (0.9-1.1) 05/04/21 19:56 APTT 24.4 Seconds (21.0-31.0) 05/04/21 19:56 Urine Color Yellow 05/04/21 22:25 Urine Appearance Clear (Clear) 05/04/21 22:25 Urine pH 7.0 (4.5-7.5) 05/04/21 22:25 Ur Specific [place] 1.017 (1.000-1.030) 05/04/21 22:25 Urine Protein Negative (Negative) 05/04/21 22:25 Urine Glucose (UA) Negative (Negative) 05/04/21 22:25 Urine Ketones 1+ (Negative) H 05/04/21 22:25 Urine Nitrite Negative (Negative) 05/04/21 22:25 Ur Leukocyte Esterase 1+ (Negative) H 05/04/21 22:25 Urine WBC (Auto) 1-5 /hpf (0-5) 05/04/21 22:25 Urine RBC (Auto) 5-10 /hpf (0-4) H 05/04/21 22:25 U Hyaline Cast (Auto) 0 /lpf (0-5) 05/04/21 22:25 U Epithel Cells (Auto) 20-30 /lpf (0-5) H 05/04/21 22:25 Urine Bacteria (Auto) Negative (Negative) 05/04/21 22:25 Blood Type A Positive 05/04/21 19:56 Antibody Screen NEGATIVE 05/04/21 19:56 Electrocardiogram Date: 05/05/21 Findings: + NSR @ (79) PACs with aberrant conduction, when compared with ECG of 03/18/2021 aberrant conduction is now present, DE interval has decreased, borderline criteria for anterior infarct are no longer present, T wave amplitude has increased in a nterolateral leads. Chest X-Ray Date: 05/04/21 IMPRESSION: 1. Small left pleural effusion with mild left basilar opacity. 2. Cardiomegaly. Pulmonary vascular congestion without overt pulmonary edema
[2021-05-05] MEDS ORDERED: LIDOCAINE 2% 2 ML VIAL/AMP(20MG/ML) INFIL ONE (15:41)
[2021-05-05] MEDS ORDERED: ePHEDrine sulfate 50 MG/ML SYR ONE (15:41)
[2021-05-05] MEDS ORDERED: PROPOFOL IV EMULSION 10 MG/ML 20 ML VIAL IV ONE (15:41)
[2021-05-05] MEDS ORDERED: PHENYLEPHRINE 100MCG/ML 5ML SYR ONE (15:41)
[2021-05-05] MEDS ORDERED: fentaNYL citrate 100 MCG/2 ML VIAL ONE (15:41)
--- NOTE | 2021-05-05 16:06 | Hospitalist Progress Note ---
Date of Service May 05, 2021 Assessment & Plan (1) Closed intertrochanteric fracture of left hip: Plan: History of recurrent mechanical falls. She had another fall on the day of admission with fracture of the left hip The daughter wanted to have it repaired Appreciate Ortho input and recommendation for TFN of left hip today (2) Recurrent falls: Plan: Has multiple comorbid conditions as documented in H&P including breast cancer and is under hospice care at [facility] She walks with a walker (3) CAD (coronary artery disease): Plan: Had CAD with stent placement in the past No acute cardiac symptoms (4) Hypertension: Plan: Blood pressure remains on the upper side We will continue current medications (5) Hypothyroidism: Plan: Continue supplement (6) Dementia: Plan: History of severe dementia as per the daughter Minimally verbal Recognizes family members most of the time No acute confusion with recent injury DVT prophylaxis SCDs for now CODE STATUS DNR Admission and Anticipated Discharge Date Admission Date: May 04, 2021 Subjective 05/05/2021 The patient was seen and examined in medical floor She is nonverbal but not in any acute distress Review of Systems Review of Systems: Unobtainable due to cognitive status Physical Exam Physical Exam: Lying in bed comfortably Constitutional: + ill appearing and + thin Eyes: PERRL, conjunctivae normal, anicteric sclerae ENMT: external ear and nose normal, oropharynx normal Neck: trachea midline, no thyromegaly Respiratory: no respiratory distress Auscultation: + diminished lung sounds and + crackles (Minimal crackles at the bases) Cardiovascular: Rate/Rhythm: regular rate and regular rhythm; not tachycardic Heart Sounds: normal S1, normal S2 and + murmur (2/6 ESM over precordium) Gastrointestinal (Abdomen): Inspection/Auscultation: normal bowel sounds; abdomen not distended Percussion/Palpation: abdomen soft; abdomen nontender Musculoskeletal: Has shortening of the left lower extremity. Pain with movement of the left lower extremity Neurologic: Alert and awake. Nonverbal. No acute distress Results & Data Results & Data ([facility]) Vital Signs (Past 12 Hours) Vital Signs Temp Pulse Resp BP Pulse Ox 05/05/21 15:44 36.4 C L 65 16 158/68 H 95 05/05/21 07:25 36.7 C 76 16 184/84 H 96 Laboratory Results Short CBC 05/04/21 05/05/21 Range/Units 19:56 05:31 WBC 10.04 8.49 (4.8-10.8) K/uL Hgb 12.6 11.2 L (12.0-16.0) g/dL Hct 39.6 34.5 L (37-47) % Plt Count 261 228 (130-400) K/uL BMP 05/04/21 05/05/21 19:56 05:31 Sodium 141 140 Potassium 4.2 3.7 Chloride 109 H 108 H Carbon Dioxide 26 26 BUN 23 H 20 H Creatinine 0.75 0.77 Glucose 95 151 H Calcium 8.6 8.7 Liver Function 05/04/21 Range/Units 19:56 Total Bilirubin 0.6 (0.2-1) mg/dl AST 23 (15-37) U/L ALT 27 (12-78) U/L Alkaline Phosphatase 75 (45-117) U/L Albumin 3.5 (3.4-5.0) gm/dl Urine 05/04/21 Range/Units 22:25 Urine Color Yellow Urine Appearance Clear (Clear) Urine pH 7.0 (4.5-7.5) Ur Specific [place] 1.017 (1.000-1.030) Urine Protein Negative (Negative) Urine Glucose (UA) Negative (Negative) Medications Administered Current Inpatient Medications Acetaminophen (Acetaminophen 325 Mg Tab) 650 mg PO Q4H PRN PRN Reason: pain/fever Stop: 06/04/21 02:03 Alprazolam (Alprazolam 0.5 Mg Tablet) 0.5 mg PO TID LLOYD Stop: 06/04/21 08:59 Last Admin: 05/05/21 14:55 Dose: 0.5 mg Documented by: Amlodipine Besylate (Amlodipine Besylate 5 Mg Tab) 5 mg PO DAILY LLOYD Stop: 06/04/21 08:59 Last Admin: 05/05/21 08:47 Dose: 5 mg Documented by: Aspirin (Aspirin 81 Mg Chew) 81 mg PO DAILY LLOYD Stop: 06/04/21 08:59 Last Admin: 05/05/21 08:47 Dose: 81 mg Documented by: Buspirone HCl (Buspirone 5 Mg Tab) 5 mg PO BID LLOYD Stop: 06/04/21 08:59 Last Admin: 05/05/21 08:47 Dose: 5 mg Documented by: Carvedilol (Carvedilol 6.25 Mg Tab) 6.25 mg PO BID LLOYD Stop: 06/04/21 02:03 Last Admin: 05/05/21 08:47 Dose: 6.25 mg Documented by: Citalopram Hydrobromide (Citalopram 20 Mg Tab) 20 mg PO DAILY LLOYD Stop: 06/04/21 08:59 Last Admin: 05/05/21 08:47 Dose: 20 mg Documented by: Docusate Sodium (Docusate Sodium 100 Mg Cap) 100 mg PO BID LLOYD Stop: 06/04/21 08:59 Last Admin: 05/05/21 08:47 Dose: 100 mg Documented by: Dextrose/Sodium Chloride (D5w And Nss) 1,000 mls @ 75 mls/hr IV .[id number] LLOYD Stop: 06/04/21 02:03 Last Admin: 05/05/21 14:55 Dose: 75 mls/hr Documented by: Levothyroxine Sodium (Levothyroxine Sodium 125 Mcg Tablet) 125 mcg PO DAILYBB LLOYD Stop: 06/04/21 06:29 Last Admin: 05/05/21 03:46 Dose: 125 mcg Documented by: Melatonin (Melatonin 3 Mg Tab) 3 mg PO HS [facility] Stop: 06/04/21 20:59 Morphine Sulfate (Morphine Sulfate 2 Mg/Ml Carp) 2 mg IV Q3H PRN PRN Reason: Pain Stop: 05/19/21 02:03 Last Admin: 05/05/21 03:49 Dose: 2 mg Documented by: Ondansetron HCl (Ondansetron Inj 2 Mg/Ml 2 Ml Vial) 4 mg IV Q6H PRN PRN Reason: Nausea Stop: 06/04/21 02:03 Polyethylene Glycol (Polyethylene (Miralax) 17 Gm Pack) 17 gm PO DAILY PRN PRN Reason: Constipation Stop: 06/04/21 02:03 Vitamin D (Cholecalciferol 1,000 Units 25 Mcg Tab) 1,000 units PO DAILY LLOYD Stop: 06/04/21 08:59 Last Admin: 05/05/21 09:13 Dose: 1,000 units Documented by:
[2021-05-05] MEDS ORDERED: ATROPINE SULFATE 0.1 MG/ML 10ML SYR IV PRN (16:57)
[2021-05-05] MEDS ORDERED: fentaNYL citrate 100 MCG/2 ML VIAL IV PRN (16:57)
[2021-05-05] MEDS ORDERED: ePHEDrine sulfate 50 MG/ML AMP IV PRN (16:57)
[2021-05-05] MEDS ORDERED: ceFAZolin 2,000 MG/15 ML IV PUSH IV ONE (17:18)
[2021-05-05] MEDS ORDERED: ceFAZolin 2000MG 2,000 MG/15 ML SYR IV ONE (17:20)
[2021-05-05] MEDS ORDERED: BUPIVACAINE 0.5 % 5 MG/1 ML MPF 30ML VIAL ONE (17:36)
[2021-05-05] MEDS ORDERED: LIDOCAINE 1% LOCAL 20 ML VIAL ONE ×2 (17:36→17:37)
--- NOTE | 2021-05-05 17:46 | Emergency Department Note ---
History of Present Illness General Chief complaint: Hip Pain Stated complaint: Hip Pain Source: RN notes reviewed and old records reviewed (SNF records) Mode of arrival: EMS Limitations: altered mental status (Dementia) History of Present Illness Provider complaint: Fall with L hip pain This patient is an 85-year-old female who resides at the [facility] in the dementia unit. Patient apparently fell today and has been complaining of left hip pain. She is minimally verbal but does say "hurt" with any movement. She is noted to have a rotated and shortened left lower extremity. Patient is unable to give a detailed story of the fall. There is no report of loss of consciousness. History is limited secondary to the patient's dementia. Home Medications Medication Instructions Recorded Confirmed Type docusate sodium 100 mg capsule 100 mg PO BID #60 cap 03/19/21 05/04/21 Rx (Colace) acetaminophen 325 mg tablet 650 mg PO Q6 PRN MDD 3g 05/04/21 05/04/21 History acetaminophen 325 mg tablet 650 mg PO Q6 PRN MDD 3g 05/04/21 05/04/21 History alprazolam 0.5 mg tablet (Xanax) 0.5 mg PO TID 05/04/21 05/04/21 History amlodipine 5 mg tablet (Norvasc) 5 mg PO DAILY 05/04/21 05/04/21 History buspirone 5 mg tablet 5 mg PO BID 05/04/21 05/04/21 History carvedilol 6.25 mg tablet (Coreg) 6.25 mg PO BID 05/04/21 05/04/21 History cholecalciferol (vitamin D3) 25 25 mcg PO DAILY 05/04/21 05/04/21 History mcg (1,000 unit) tablet (Vitamin D3) citalopram 10 mg tablet 10 mg PO DAILY 05/04/21 05/04/21 History citalopram 20 mg tablet 20 mg PO DAILY 05/04/21 05/04/21 History levothyroxine 125 mcg tablet 125 mcg PO QAM 05/04/21 05/04/21 History melatonin 3 mg tablet 3 mg PO HS 05/04/21 05/04/21 History aspirin 325 mg tablet,delayed 325 mg PO BID #60 tab 05/12/21 Rx release (Ecotrin) polyethylene glycol 3350 17 gram 17 g PO DAILY PRN #14 ea 05/12/21 Rx oral powder packet (Miralax) potassium chloride 20 mEq 20 meq PO QAM #30 tab 05/12/21 Rx tablet,extended release(part/cryst) (Klor-Con M) Allergies Allergy/AdvReac Type Severity Reaction Status Date / Time enalapril Allergy Unknown Verified 05/04/21 19:44 naproxen [From Naprosyn] Allergy Unknown Verified 05/04/21 19:44 Past Med/Surg History Medical History CAD (coronary artery disease) Depression Hypertension Hypothyroidism Surgical History History of cardiac catheterization History of cholecystectomy History of total left knee replacement (TKR) Social History Smoking Status: Never smoker Second Hand Exposure: No; Do You Dip or Chew Tobacco: No; Hx Alcohol Use: No Hx Substance Use: No Preferred Language: Occitan Communication Ability: Impaired 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: No Beliefs That Will Affect Care: None marital status: Current Living Situation: [facility] Current Living Situation Comment: dementia unit Other Information That Helps Us Care for You: No Feels Safe at Home: No Is there a partner from a previous relationship who is making you feel unsafe now?: No Any Concerns about Your Family Situation: No Would You Like to Speak to Someone About Your Situation: No Assistive Devices: None Assistive Devices Comment: all debices at shelter Review of Systems Unobtainable due to cognitive status Physical Exam Vital Signs Vital Signs - 24 hr 05/04/21 19:09 05/04/21 19:18 05/04/21 19:39 Temperature 37.1 C Temperature Source Oral Pulse Rate 75 68 80 Pulse Rate from SpO2 Sensor Pulse Rhythm Regular Respiratory Rate 19 16 18 Respiratory Effort / Characteristics Non-Labored Spontaneous Respiratory Depth Normal Respiratory Pattern Regular Blood Pressure 169/112 H 169/112 H Blood Pressure Mean 131 131 Pulse Oximetry 96 96 Oxygen Delivery Method Room Air Room Air Sepsis Recent Fever Within 48 Hours No Sepsis New/Unexplained Change in Mental Status No Sepsis Action Taken by Nursing No Action Required 05/04/21 20:10 05/04/21 20:40 05/04/21 21:00 Temperature Temperature Source Pulse Rate 81 75 90 Pulse Rate from SpO2 Sensor 75 Pulse Rhythm Respiratory Rate 18 20 12 Respiratory Effort / Characteristics Respiratory Depth Respiratory Pattern Blood Pressure 243/116 H Blood Pressure Mean 158 Pulse Oximetry 96 Oxygen Delivery Method Sepsis Recent Fever Within 48 Hours Sepsis New/Unexplained Change in Mental Status Sepsis Action Taken by Nursing 05/04/21 21:32 Temperature Temperature Source Pulse Rate 84 Pulse Rate from SpO2 Sensor Pulse Rhythm Respiratory Rate 15 Respiratory Effort / Characteristics Respiratory Depth Respiratory Pattern Blood Pressure 178/88 H Blood Pressure Mean 118 Pulse Oximetry Oxygen Delivery Method Sepsis Recent Fever Within 48 Hours Sepsis New/Unexplained Change in Mental Status Sepsis Action Taken by Nursing Vital signs reviewed. General: Chronically ill-appearing 85-year-old female, in some discomfort.. HEENT: No conjunctival injection, PERRLA, neck supple. Atraumatic. Cardiovascular: Regular rate and rhythm, no extra sounds. Pulmonary: Clear to auscultation bilaterally, normal work of breathing. Abdomen: Soft, nontender, nondistended, positive bowel sounds. Musculoskeletal: Atraumatic, no peripheral edema. Nontender to palpation over the cervical spine. Pain to the left pelvis/hip to pelvic rocking. Pain with a ny range of motion of the left lower extremity at the hip. Neurovascularly intact distally. Neurologic: Patient awake alert and unable to answer questions appropriately. Skin: Warm, dry, no rash Course Administered Medications Discontinued Medications Acetaminophen (Acetaminophen 325 Mg Tab) 650 mg PO Q4H PRN PRN Reason: pain/fever Stop: 06/04/21 02:03 Last Admin: 05/08/21 20:42 Dose: 650 mg Documented by: [id number] Admin: 05/07/21 08:30 Dose: 650 mg Documented by: [id number] Admin: 05/06/21 11:40 Dose: 650 mg Documented by: [id number] Alprazolam (Alprazolam 0.5 Mg Tablet) 0.5 mg PO TID [facility] Stop: 06/04/21 08:59 Last Admin: 05/12/21 15:44 Dose: 0.5 mg Documented by: [id number] Admin: 05/12/21 10:15 Dose: 0.5 mg Documented by: [id number] Admin: 05/11/21 19:58 Dose: 0.5 mg Documented by: [id number] Admin: 05/11/21 14:57 Dose: 0.5 mg Documented by: [id number] Admin: 05/11/21 08:12 Dose: 0.5 mg Documented by: [id number] Admin: 05/10/21 20:58 Dose: 0.5 mg Documented by: [id number] Admin: 05/10/21 15:06 Dose: 0.5 mg Documented by: [id number] Admin: 05/10/21 08:20 Dose: 0.5 mg Documented by: [id number] Admin: 05/09/21 20:53 Dose: 0.5 mg Documented by: [id number] Admin: 05/09/21 14:45 Dose: 0.5 mg Documented by: [id number] Admin: 05/09/21 08:39 Dose: 0.5 mg Documented by: [id number] Admin: 05/08/21 20:43 Dose: 0.5 mg Documented by: [id number] Admin: 05/08/21 14:32 Dose: 0.5 mg Documented by: [id number] Admin: 05/08/21 09:52 Dose: 0.5 mg Documented by: [id number] Admin: 05/07/21 20:02 Dose: 0.5 mg Documented by: [id number] Admin: 05/07/21 13:23 Dose: 0.5 mg Documented by: [id number] Admin: 05/07/21 07:32 Dose: 0.5 mg Documented by: [id number] Admin: 05/06/21 20:48 Dose: 0.5 mg Documented by: [id number] Admin: 05/06/21 13:21 Dose: Not Given Documented by: [id number] Admin: 05/06/21 07:42 Dose: 0.5 mg Documented by: [id number] Admin: 05/05/21 20:57 Dose: 0.5 mg Documented by: [id number] Admin: 05/05/21 14:55 Dose: 0.5 mg Documented by: [id number] Admin: 05/05/21 08:49 Dose: 0.5 mg Documented by: [id number] Amlodipine Besylate (Amlodipine Besylate 5 Mg Tab) 5 mg PO DAILY [facility] Stop: 06/04/21 08:59 Last Admin: 05/12/21 10:11 Dose: 5 mg Documented by: [id number] Admin: 05/11/21 08:11 Dose: 5 mg Documented by: [id number] Admin: 05/10/21 08:17 Dose: 5 mg Documented by: [id number] Admin: 05/09/21 08:41 Dose: 5 mg Documented by: [id number] Admin: 05/08/21 09:52 Dose: 5 mg Documented by: [id number] Admin: 05/07/21 07:32 Dose: 5 mg Documented by: [id number] Admin: 05/06/21 07:40 Dose: 5 mg Documented by: [id number] Admin: 05/05/21 08:47 Dose: 5 mg Documented by: [id number] Aspirin (Aspirin 81 Mg Chew) 81 mg PO DAILY [facility] Stop: 06/04/21 08:59 Last Admin: 05/05/21 08:47 Dose: 81 mg Documented by: [id number] Aspirin (Aspirin 325 Mg Ectab) 325 mg PO BID [facility] Stop: 06/04/21 20:59 Last Admin: 05/12/21 10:11 Dose: 325 mg Documented by: [id number] Admin: 05/11/21 19:59 Dose: 325 mg Documented by: [id number] Admin: 05/11/21 08:12 Dose: 325 mg Documented by: [id number] Admin: 05/10/21 20:57 Dose: 325 mg Documented by: [id number] Admin: 05/10/21 08:17 Dose: 325 mg Documented by: [id number] Admin: 05/09/21 20:54 Dose: 325 mg Documented by: [id number] Admin: 05/09/21 08:40 Dose: 325 mg Documented by: [id number] Admin: 05/08/21 20:44 Dose: 325 mg Documented by: [id number] Admin: 05/08/21 09:53 Dose: 325 mg Documented by: [id number] Admin: 05/07/21 20:03 Dose: 325 mg Documented by: [id number] Admin: 05/07/21 07:32 Dose: 325 mg Documented by: [id number] Admin: 05/06/21 20:48 Dose: 325 mg Documented by: [id number] Admin: 05/06/21 07:40 Dose: 325 mg Documented by: [id number] Admin: 05/05/21 21:50 Dose: Not Given Documented by: [id number] Bupivacaine HCl (Bupivacaine 0.5 % 5 Mg/1 Ml Mpf 30ml Vial) Confirm Administered Dose 30 ml .ROUTE .STK-MED ONE Stop: 05/05/21 17:37 Last Admin: 05/05/21 18:40 Dose: 20 ml Documented by: [id number] Buspirone HCl (Buspirone 5 Mg Tab) 5 mg PO BID [facility] Stop: 06/04/21 08:59 Last Admin: 05/12/21 10:12 Dose: 5 mg Documented by: [id number] Admin: 05/11/21 19:58 Dose: 5 mg Documented by: [id number] Admin: 05/11/21 08:12 Dose: 5 mg Documented by: [id number] Admin: 05/10/21 20:57 Dose: 5 mg Documented by: [id number] Admin: 05/10/21 08:17 Dose: 5 mg Documented by: [id number] Admin: 05/09/21 20:54 Dose: 5 mg Documented by: [id number] Admin: 05/09/21 08:40 Dose: 5 mg Documented by: [id number] Admin: 05/08/21 20:43 Dose: 5 mg Documented by: [id number] Admin: 05/08/21 09:53 Dose: 5 mg Documented by: [id number] Admin: 05/07/21 20:03 Dose: 5 mg Documented by: [id number] Admin: 05/07/21 07:32 Dose: 5 mg Documented by: [id number] Admin: 05/06/21 20:48 Dose: 5 mg Documented by: [id number] Admin: 05/06/21 07:40 Dose: 5 mg Documented by: [id number] Admin: 05/05/21 20:59 Dose: 5 mg Documented by: [id number] Admin: 05/05/21 08:47 Dose: 5 mg Documented by: [id number] Carvedilol (Carvedilol 6.25 Mg Tab) 6.25 mg PO BID [facility] Stop: 06/04/21 02:03 Last Admin: 05/12/21 10:10 Dose: 6.25 mg Documented by: [id number] Admin: 05/11/21 19:59 Dose: 6.25 mg Documented by: [id number] Admin: 05/11/21 08:11 Dose: 6.25 mg Documented by: [id number] Admin: 05/10/21 20:58 Dose: 6.25 mg Documented by: [id number] Admin: 05/10/21 08:16 Dose: 6.25 mg Documented by: [id number] Admin: 05/09/21 20:56 Dose: 6.25 mg Documented by: [id number] Admin: 05/09/21 08:40 Dose: 6.25 mg Documented by: [id number] Admin: 05/08/21 20:44 Dose: 6.25 mg Documented by: [id number] Admin: 05/08/21 09:53 Dose: 6.25 mg Documented by: [id number] Admin: 05/07/21 20:01 Dose: 6.25 mg Documented by: [id number] Admin: 05/07/21 07:32 Dose: 6.25 mg Documented by: [id number] Admin: 05/06/21 20:49 Dose: 6.25 mg Documented by: [id number] Admin: 05/06/21 07:40 Dose: 6.25 mg Documented by: [id number] Admin: 05/05/21 20:59 Dose: 6.25 mg Documented by: [id number] Admin: 05/05/21 08:47 Dose: 6.25 mg Documented by: [id number] Admin: 05/05/21 03:46 Dose: 6.25 mg Documented by: [id number] Cefazolin Sodium (Cefazolin 2,000 Mg/15 Ml Iv Push) Confirm Administered Dose 2,000 mg IV .[facility] Stop: 05/05/21 17:19 Last Admin: 05/05/21 17:22 Dose: 2,000 mg Documented by: [id number] Citalopram Hydrobromide (Citalopram 20 Mg Tab) 20 mg PO DAILY [facility] Stop: 06/04/21 08:59 Last Admin: 05/12/21 10:11 Dose: 20 mg Documented by: [id number] Admin: 05/11/21 08:11 Dose: 20 mg Documented by: [id number] Admin: 05/10/21 08:17 Dose: 20 mg Documented by: [id number] Admin: 05/09/21 08:41 Dose: 20 mg Documented by: [id number] Admin: 05/08/21 09:53 Dose: 20 mg Documented by: [id number] Admin: 05/07/21 07:32 Dose: 20 mg Documented by: [id number] Admin: 05/06/21 07:40 Dose: 20 mg Documented by: [id number] Admin: 05/05/21 08:47 Dose: 20 mg Documented by: [id number] Docusate Sodium (Docusate Sodium 100 Mg Cap) 100 mg PO BID [facility] Stop: 06/04/21 08:59 Last Admin: 05/12/21 10:12 Dose: 100 mg Documented by: [id number] Admin: 05/11/21 19:58 Dose: 100 mg Documented by: [id number] Admin: 05/11/21 08:12 Dose: Not Given Documented by: [id number] Admin: 05/10/21 20:57 Dose: 100 mg Documented by: [id number] Admin: 05/10/21 08:17 Dose: 100 mg Documented by: [id number] Admin: 05/09/21 20:54 Dose: 100 mg Documented by: [id number] Admin: 05/09/21 08:40 Dose: 100 mg Documented by: [id number] Admin: 05/08/21 20:43 Dose: 100 mg Documented by: [id number] Admin: 05/08/21 09:58 Dose: Not Given Documented by: [id number] Admin: 05/07/21 20:03 Dose: 100 mg Documented by: [id number] Admin: 05/07/21 07:32 Dose: 100 mg Documented by: [id number] Admin: 05/06/21 20:48 Dose: 100 mg Documented by: [id number] Admin: 05/06/21 07:39 Dose: 100 mg Documented by: [id number] Admin: 05/05/21 20:59 Dose: 100 mg Documented by: [id number] Admin: 05/05/21 08:47 Dose: 100 mg Documented by: [id number] Sodium Chloride (Nss 1000ml) 1,000 mls @ 75 mls/hr IV .[id number] [facility] Stop: 05/05/21 09:04 Last Infusion: 05/05/21 02:09 Dose: 0 mls/hr Documented by: [id number] Admin: 05/04/21 19:52 Dose: 75 mls/hr Documented by: [id number] Acetaminophen (Ofirmev) 1,000 mg in 100 mls @ 400 mls/hr IV NOW STA Stop: 05/04/21 19:54 Last Infusion: 05/04/21 20:07 Dose: 0 mls/hr Documented by: [id number] Admin: 05/04/21 19:51 Dose: 400 mls/hr Documented by: [id number] Dextrose/Sodium Chloride (D5w And Nss) 1,000 mls @ 75 mls/hr IV .[id number] [facility] Stop: 06/04/21 02:03 Last Infusion: 05/06/21 14:14 Dose: 0 mls/hr Documented by: [id number] Admin: 05/06/21 05:53 Dose: 75 mls/hr Documented by: [id number] Infusion: 05/06/21 04:15 Dose: 75 mls/hr Documented by: [id number] Admin: 05/05/21 14:55 Dose: 75 mls/hr Documented by: [id number] Infusion: 05/05/21 14:55 Dose: 75 mls/hr Documented by: [id number] Admin: 05/05/21 02:34 Dose: 75 mls/hr Documented by: [id number] Cefazolin Sodium (Ancef 2000mg) 2,000 mg in 15 mls @ 3.75 mls/min IV PREOP ONE Stop: 05/05/21 17:23 Last Admin: 05/05/21 17:26 Dose: Not Given Documented by: [id number] Levothyroxine Sodium ([facility]othy[facility]ine S[facility] 125 Mcg [facility]t) [facility]: 06/04/21 06:29 Last Admin: 05/12/21 06:03 Dose: 125 mcg Documented by: [id number] Admin: 05/11/21 05:44 Dose: 125 mcg Documented by: [id number] Admin: 05/10/21 05:20 Dose: 125 mcg Documented by: [id number] Admin: 05/09/21 06:03 Dose: 125 mcg Documented by: [id number] Admin: 05/08/21 06:03 Dose: 125 mcg Documented by: [id number] Admin: 05/07/21 05:27 Dose: 125 mcg Documented by: [id number] Admin: 05/06/21 05:52 Dose: 125 mcg Documented by: [id number] Admin: 05/05/21 03:46 Dose: 125 mcg Documented by: [id number] Lidocaine HCl (Lidocaine 1% Local 20 Ml Vial) Confirm Administered Dose 20 ml .ROUTE .STK-MED ONE Stop: 05/05/21 17:37 Last Admin: 05/05/21 18:44 Dose: Not Given Documented by: [id number] Lidocaine HCl (Lidocaine 1% Local 20 Ml Vial) Confirm Administered Dose 20 ml .ROUTE .STK-MED ONE Stop: 05/05/21 17:38 Last Admin: 05/05/21 18:40 Dose: 20 ml Documented by: [id number] Melatonin (Melatonin 3 Mg Tab) 3 mg PO [facility] Stop: 06/04/21 20:59 Last Admin: 05/11/21 19:58 Dose: 3 mg Documented by: [id number] Admin: 05/10/21 20:58 Dose: 3 mg Documented by: [id number] Admin: 05/09/21 20:53 Dose: 3 mg Documented by: [id number] Admin: 05/08/21 20:43 Dose: 3 mg Documented by: [id number] Admin: 05/07/21 20:02 Dose: 3 mg Documented by: [id number] Admin: 05/06/21 20:48 Dose: 3 mg Documented by: [id number] Admin: 05/05/21 20:57 Dose: 3 mg Documented by: [id number] Morphine Sulfate (Morphine Sulfate 2 Mg/Ml Carp) 2 mg IV Q3H PRN PRN Reason: Pain Stop: 05/19/21 02:03 Last Admin: 05/07/21 16:48 Dose: 2 mg Documented by: [id number] Admin: 05/06/21 16:00 Dose: 2 mg Documented by: [id number] Admin: 05/06/21 02:33 Dose: 2 mg Documented by: [id number] Admin: 05/05/21 20:57 Dose: 2 mg Documented by: [id number] Admin: 05/05/21 03:49 Dose: 2 mg Documented by: [id number] Potassium Chloride (Potassium Chloride Crtab 20 Meq Tabcr) 20 meq PO QAM [facility] Stop: 06/11/21 09:29 Last Admin: 05/12/21 10:15 Dose: 20 meq Documented by: [id number] Vitamin D (Cholecalciferol 1,000 Units 25 Mcg Tab) 1,000 units PO DAILY [facility] Stop: 06/04/21 08:59 Last Admin: 05/12/21 10:11 Dose: 1,000 units Documented by: [id number] Admin: 05/11/21 08:11 Dose: 1,000 units Documented by: [id number] Admin: 05/10/21 08:17 Dose: 1,000 units Documented by: [id number] Admin: 05/09/21 08:41 Dose: 1,000 units Documented by: [id number] Admin: 05/08/21 09:53 Dose: 1,000 units Documented by: [id number] Admin: 05/07/21 07:32 Dose: 1,000 units Documented by: [id number] Admin: 05/06/21 07:40 Dose: 1,000 units Documented by: [id number] Admin: 05/05/21 09:13 Dose: 1,000 units Documented by: [id number] Medical Decision Making Differential Diagnosis Fracture, dislocation, contusion, intra-abdominal, pneumothorax, intrathoracic, intracranial, neurologic, compartment syndrome, rhabdomyolysis, as well as other pathologies. Medical Records Attestation: I reviewed the patient's medical records. Home Medications Current Medication List: was personally reviewed by me Laboratory Data Attestation: I reviewed the patient's lab results. Result diagrams: 05/12/21 06:30 05/12/21 06:30 Lab Results 05/04/21 05/04/21 05/04/21 Range/Units 19:56 19:56 19:56 WBC 10.04 (4.8-10.8) K/uL RBC 4.20 (4.2-5.4) M/uL Hgb 12.6 (12.0-16.0) g/dL Hct 39.6 (37-47) % MCV 94.3 (80-100) fL MCH 30.0 (25-34) pg MCHC 31.8 L (32-36) g/dL RDW Std Deviation 51.4 H (36.4-46.3) fL RDW Coeff of Julio Cesar 15.0 H (11.5-14.5) % Plt Count 261 (130-400) K/uL MPV 9.9 (7.4-10.4) fL Immature Gran % (Auto) 0.9 % Neut % (Auto) 77.0 % Lymph % (Auto) 13.4 % Karnes % (Auto) 8.1 % Eos % (Auto) 0.3 % Baso % (Auto) 0.3 % Neut # (Auto) 7.73 H (1.4-6.5) K/uL Lymph # (Auto) 1.35 (1.2-3.4) K/uL Karnes # (Auto) 0.81 H (0.11-0.59) K/uL Eos # (Auto) 0.03 (0-0.5) K/uL Baso # (Auto) 0.03 (0-0.2) K/uL Immature Gran # (Auto) 0.09 H (0.00-0.02) K/uL PT 10.9 (9.0-12.0) Seconds INR 1.1 (0.9-1.1) APTT 24.4 (21.0-31.0) Seconds PTT Ratio 0.9 Sodium (136-145) mmol/L Potassium (3.5-5.1) mmol/L Chloride (98-107) mmol/L Carbon Dioxide (21-32) mmol/L Anion Gap (3-11) BUN (7-18) mg/dl Creatinine (0.6-1.2) mg/dl Est Cr Clr Drug Dosing Est GFR ( Amer) ml/min Est GFR (Non-Af Amer) ml/min BUN/Creatinine Ratio (10-20) Glucose (70-99) mg/dl Calcium (8.5-10.1) mg/dl Total Bilirubin (0.2-1) mg/dl AST (15-37) U/L ALT (12-78) U/L Alkaline Phosphatase (45-117) U/L Total Protein (6.4-8.2) gm/dl Albumin (3.4-5.0) gm/dl Globulin (2.5-4.0) gm/dl Albumin/Globulin Ratio (0.9-2) Urine Color Urine Appearance (Clear) Urine pH (4.5-7.5) Ur Specific Lockney (1.000-1.030) Urine Protein (Negative) Urine Glucose (UA) (Negative) Urine Ketones (Negative) Urine Blood (Negative) Urine Nitrite (Negative) Urine Bilirubin (Negative) Urine Urobilinogen (Negative) Ur Leukocyte Esterase (Negative) Urine WBC (Auto) (0-5) /hpf Urine RBC (Auto) (0-4) /hpf U Hyaline Cast (Auto) (0-5) /lpf U Epithel Cells (Auto) (0-5) /lpf Urine Bacteria (Auto) (Negative) COVID-19 Eval Order SARS-CoV-2 (PCR) (Negative) Blood Type A Positive Antibody Screen NEGATIVE Crossmatch See Detail 05/04/21 05/04/21 05/04/21 Range/Units 19:56 21:50 21:50 WBC (4.8-10.8) K/uL RBC (4.2-5.4) M/uL Hgb (12.0-16.0) g/dL Hct (37-47) % MCV (80-100) fL MCH (25-34) pg MCHC (32-36) g/dL RDW Std Deviation (36.4-46.3) fL RDW Coeff of Julio Cesar (11.5-14.5) % Plt Count (130-400) K/uL MPV (7.4-10.4) fL Immature Gran % (Auto) % Neut % (Auto) % Lymph % (Auto) % Karnes % (Auto) % Eos % (Auto) % Baso % (Auto) % Neut # (Auto) (1.4-6.5) K/uL Lymph # (Auto) (1.2-3.4) K/uL Karnes # (Auto) (0.11-0.59) K/uL Eos # (Auto) (0-0.5) K/uL Baso # (Auto) (0-0.2) K/uL Immature Gran # (Auto) (0.00-0.02) K/uL PT (9.0-12.0) Seconds INR (0.9-1.1) APTT (21.0-31.0) Seconds PTT Ratio Sodium 141 (136-145) mmol/L Potassium 4.2 (3.5-5.1) mmol/L Chloride 109 H (98-107) mmol/L Carbon Dioxide 26 (21-32) mmol/L Anion Gap 6.0 (3-11) BUN 23 H (7-18) mg/dl Creatinine 0.75 (0.6-1.2) mg/dl Est Cr Clr Drug Dosing Not Reportable Est GFR ( Amer) 84.8 ml/min Est GFR (Non-Af Amer) 73.2 ml/min BUN/Creatinine Ratio 30.5 H (10-20) Glucose 95 (70-99) mg/dl Calcium 8.6 (8.5-10.1) mg/dl Total Bilirubin 0.6 (0.2-1) mg/dl AST 23 (15-37) U/L ALT 27 (12-78) U/L Alkaline Phosphatase 75 (45-117) U/L Total Protein 7.4 (6.4-8.2) gm/dl Albumin 3.5 (3.4-5.0) gm/dl Globulin 3.9 (2.5-4.0) gm/dl Albumin/Globulin Ratio 0.9 (0.9-2) Urine Color Urine Appearance (Clear) Urine pH (4.5-7.5) Ur Specific Lockney (1.000-1.030) Urine Protein (Negative) Urine Glucose (UA) (Negative) Urine Ketones (Negative) Urine Blood (Negative) Urine Nitrite (Negative) Urine Bilirubin (Negative) Urine Urobilinogen (Negative) Ur Leukocyte Esterase (Negative) Urine WBC (Auto) (0-5) /hpf Urine RBC (Auto) (0-4) /hpf U Hyaline Cast (Auto) (0-5) /lpf U Epithel Cells (Auto) (0-5) /lpf Urine Bacteria (Auto) (Negative) COVID-19 Eval Order Covid19 at [facility] SARS-CoV-2 (PCR) NEGATIVE (Negative) Blood Type Antibody Screen Crossmatch 05/04/21 Range/Units 22:25 WBC (4.8-10.8) K/uL RBC (4.2-5.4) M/uL Hgb (12.0-16.0) g/dL Hct (37-47) % MCV (80-100) fL MCH (25-34) pg MCHC (32-36) g/dL RDW Std Deviation (36.4-46.3) fL RDW Coeff of Julio Cesar (11.5-14.5) % Plt Count (130-400) K/uL MPV (7.4-10.4) fL Immature Gran % (Auto) % Neut % (Auto) % Lymph % (Auto) % Karnes % (Auto) % Eos % (Auto) % Baso % (Auto) % Neut # (Auto) (1.4-6.5) K/uL Lymph # (Auto) (1.2-3.4) K/uL Karnes # (Auto) (0.11-0.59) K/uL Eos # (Auto) (0-0.5) K/uL Baso # (Auto) (0-0.2) K/uL Immature Gran # (Auto) (0.00-0.02) K/uL PT (9.0-12.0) Seconds INR (0.9-1.1) APTT (21.0-31.0) Seconds PTT Ratio Sodium (136-145) mmol/L Potassium (3.5-5.1) mmol/L Chloride (98-107) mmol/L Carbon Dioxide (21-32) mmol/L Anion Gap (3-11) BUN (7-18) mg/dl Creatinine (0.6-1.2) mg/dl Est Cr Clr Drug Dosing Est GFR ( Amer) ml/min Est GFR (Non-Af Amer) ml/min BUN/Creatinine Ratio (10-20) Glucose (70-99) mg/dl Calcium (8.5-10.1) mg/dl Total Bilirubin (0.2-1) mg/dl AST (15-37) U/L ALT (12-78) U/L Alkaline Phosphatase (45-117) U/L Total Protein (6.4-8.2) gm/dl Albumin (3.4-5.0) gm/dl Globulin (2.5-4.0) gm/dl Albumin/Globulin Ratio (0.9-2) Urine Color Yellow Urine Appearance Clear (Clear) Urine pH 7.0 (4.5-7.5) Ur Specific [place] 1.017 (1.000-1.030) Urine Protein Negative (Negative) Urine Glucose (UA) Negative (Negative) Urine Ketones 1+ H (Negative) Urine Blood Negative (Negative) Urine Nitrite Negative (Negative) Urine Bilirubin Negative (Negative) Urine Urobilinogen Negative (Negative) Ur Leukocyte Esterase 1+ H (Negative) Urine WBC (Auto) 1-5 (0-5) /hpf Urine RBC (Auto) 5-10 H (0-4) /hpf U Hyaline Cast (Auto) 0 (0-5) /lpf U Epithel Cells (Auto) 20-30 H (0-5) /lpf Urine Bacteria (Auto) Negative (Negative) COVID-19 Eval Order SARS-CoV-2 (PCR) (Negative) Blood Type Antibody Screen Crossmatch Imaging Data Radiologist's Impression: Pelvis CT 05/04/21 19:38 CT pelvis wo con CLINICAL HISTORY: L hip deformity, fall, dementia. COMPARISON STUDY: CT of the pelvis March 18, 2021. TECHNIQUE: Axial images of the pelvis and hips were obtained without IV contrast. Sagittal and coronal reconstructions were viewed. Automated exposure control was utilized for the study. A dose lowering technique was utilized ad jenny to the principles of ALARA. 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 Note is made of an acute moderately displaced, comminuted intertrochanteric fracture of the left femur which is new since CT of March 18, 2021. Adjacent intramuscular hemorrhage is present. No proximal right femoral fracture is noted. Old right ischiopubic ring fractures are noted. These are unchanged unchanged since prior examination. Old bilateral sacral ala fractures are present. Sigmoid diverticulosis is noted without evidence for acute diverticulitis. IMPRESSION: 1. Acute moderately displaced, comminuted intertrochanteric fracture of the left femur. Adjacent intramuscular hemorrhage. No additional acute fractures within the pelvis or hips. 2. Old right ischiopubic ring fractures with extensive bone formation and deformity at the symphysis pubis. 3. Old bilateral sacral fractures. 4. 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 ACT 112: Negative or not required by law. Electronically signed by: Lucian Don M.D. 05/04/2021 9:21 PM Chest X-Ray 05/04/21 19:39 XR chest 1V portable CLINICAL HISTORY: hip fx COMPARISON STUDY: Chest radiograph March 18, 2021. FINDINGS: Incidental note is made of degenerative changes of both shoulders and elevation of the humeral heads, greater on the right. Cardiomegaly is unchanged. There is pulmonary vascular congestion. A suspected small left pleural effusion is noted. IMPRESSION: 1. Small left pleural effusion with mild left basilar opacity. 2. Cardiomegaly. Pulmonary vascular congestion without overt pulmonary edema. ACT 112: Negative or not required by law. Electronically signed by: Lucian Don M.D. 05/04/2021 8:31 PM ECG Data Attestation: I personally reviewed and interpreted this ECG as follows: Indication: + weakness Rate (beats per minute): 79 Rhythm: + normal sinus ECG Intervals/blocks: + Normal QRS and + Normal QT-c ECG Leslie: + Normal ECG ST segments: + Normal ST segments ECG Findings: + PVCs Blood Pressure Blood Pressure Findings: Elevated blood pressure Blood Pressure Disposition: further management by hospitalist BILLIE Bennett This patient was evaluated and appeared to be in no distress but in some discomfort. IV access had been obtained and laboratory work was drawn. An order for cardiac monitoring was placed and the patient is noted to be in a normal sinus rhythm at 72 bpm. The patient was gently hydrated with normal saline solution, given IV acetaminophen for her discomfort. A Rangel catheter was placed. X-rays were obtained and the patient's chronic pelvis fractures were noted. Left intertrochanteric fracture is noted. Patient's daughter was n otified of the results at the bedside. Patient's case was discussed with the hospitalist service will evaluate the patient at the bedside for admission. Impression & Plan Closed intertrochanteric fracture of left hip, Dementia Discharge Plan Visit Data Chief Complaint: Hip Pain Stated Complaint: Hip Pain ED Provider: Angela Freitas Discharge Problem: Closed intertrochanteric fracture of left hip, Dementia Patient Disposition: Admitted As Inpatient Discharge Instructions Interventions: ED Discharge Assessment Last Done: 05/05/21 00:58 Discharge Problem: Closed intertrochanteric fracture of left hip Qualifiers: Encounter type: initial encounter Fracture alignment: displaced Qualified Code(s): S72.142A - Displaced intertrochanteric fracture of left femur, initial encounter for closed fracture Dementia Qualifiers: Dementia type: unspecified type Dementia behavioral disturbance: without behavioral disturbance Qualified Code(s): F03.90 - Unspecified dementia without behavioral disturbance
[2021-05-05] MEDS ORDERED: ONDANSETRON INJ 2 MG/ML 2 ML VIAL ONE (18:05)
[2021-05-05] MEDS ORDERED: DEXAMETHASONE SOD INJ 4 MG/ML VIAL ONE (18:05)
--- NOTE | 2021-05-05 18:52 | Post Operative Brief Note ---
Immediate Post Op Note v1 Date of Surgery May 05, 2021 Pre & Post Diagnosis Operation Date: 05/05/21 08:20 Pre-Op Diagnosis: closed intertrochanteric fracture of left hip Post-Op Diagnosis: closed intertrochanteric fracture of left hip I identified the patient and participated in the time-out.: Yes Procedure Operation Date: 05/05/21 08:20 Actual Procedures p Left Trochanteric Femoral Nail(Left) - Arnulfo Field M.D. Surgeon Arnulfo Field Action Finisher None Estimated Blood Loss 100 Findings Consistent with Post-Op Diagnosis
--- NOTE | 2021-05-05 18:53 | Electrocardiogram Report ---
Test Reason : Blood Pressure : / mmHG Vent. Rate : 079 BPM Atrial Rate : 079 BPM P-R Int : 190 ms QRS Dur : 094 ms QT Int : 384 ms P-R-T Axes : 081 -05 002 degrees QTc Int : 440 ms Poor data quality, interpretation may be adversely affected Sinus rhythm with PVCs Otherwise normal ECG When compared with ECG of 18-MAR-2021 22:19, MD interval has decreased Borderline criteria for Anterior infarct are no longer Present T wave amplitude has increased in Anterolateral leads Confirmed by Jayjay Julian ([id number]) on 05/05/2021 6:53:05 PM Referred By: [facility] Confirmed By:Mayito Julian
--- NOTE | 2021-05-05 18:56 | Operative Report ---
Post Operative Report Pre & Post Diagnosis Operation Date: 05/05/21 08:20 Pre-Op Diagnosis: Left hip intertrochanteric femur fracture Post-Op Diagnosis: Left hip intertrochanteric femur fracture I identified the patient and participated in the time-out.: Yes Procedure Operation Date: 05/05/21 08:20 Actual Procedures Left hip short cephalomedullary nailing for intertrochanteric femur fracture (29714) - Arnulfo Field M.D. Surgeon Arnulfo Field Heating Element Builder None Estimated Blood Loss 100 Findings Consistent with Post-Op Diagnosis Specimens None Drains None Anesthesia Type General Complications none Disposition Disposition: Recovery Room Indications Ms. Melara is an 85-year-old female who injured her left hip during a ground- level fall. History, clinical exam, and imaging were consistent with the above diagnosis. Risks, benefits, and alternatives of surgery were explained in detail. The patient understood all this and wished to proceed. Description of Procedure Implants: Synthes Short (170mm) 130 degree 11mm Trochanteric Fixation Nail, 11mm helical blade, 5mm distal locking screw Patient was identified in the preoperative holding area. Operative extremity was marked. Patient was then brought back to the operating room, and general anesthesia was induced without complication. Appropriate weight-based dose of Ancef was infused intravenously for antibiotic prophylaxis. Patient was then positioned on the fracture table with the traction apparatus. The nonoperative hip was flexed and placed into the well leg navarro. Longitudinal traction was applied to the operative hip. Fracture reduction was then performed under fluoroscopic imaging. Once acceptable reduction had been achieved, the left hip was then prepped and draped in a standard sterile fashion using Chlorhexidine prep. I first made an incision just proximal to the greater trochanter in line with the femoral shaft axis, and split the fibers of the iliotibial band. I then bluntly palpated down to the greater trochanter and inserted the guidewire down to the tip of the greater trochanter. It was appropriately positioned on AP and lateral images, and then driven into the proximal femur. I then inserted the soft tissue protector down to the tip of the greater trochanter and then passed the entry reamer over top of the guidewire. It was advanced down towards the lesser trochanter to open the proximal femur. I then inserted the Synthes short TFN attached to the targeting arm into the proximal femur. I malleted it down to an appropriate depth for proper trajectory of the helical blade into the femoral head. I did intentionally seat the nail little deeper than normal to avoid the large arthritic subchondral cyst in the femoral head with the tip of the helical blade. Once the nail was at an appropriate depth, I then attached the targeting guide for the helical blade onto the targeting arm. Incision was made in line with the guide through the skin and iliotibial band. The guide sleeve was placed against the lateral cortex of the femur. Guidewire was then inserted through the guide and up into the femoral neck and head. I verified proper placement and trajectory under both AP and lateral images. I advanced the guidewire to the subchondral bone in the femoral head and verified proper depth on orthogonal images. I then measured the depth off of the guidewire. The drill for the helical blade was then set at an appropriate level to match the measured length. The drill was then advanced to the set depth. An appropriate length helical blade was selected and malleted into place over the guidewire. I then deployed the set screw proximally to prevent rotation of the helical blade during fracture compression. Fracture compression was then applied using the compression ring on the helical blade targeting sleeve. I then made an incision for the distal locking screw in line with the drill guide through skin and iliotibial band. I then placed the drill sleeve down on the lateral cortex of the femur and drilled through the distal locking hole. Screw length was then measured off of the calibrated drill bit, and an appropriate length was selected and then inserted. The screw length was verified under fluoroscopic imaging. Final fluoroscopic images were then obtained to ensure proper hardware pl acement, screw length, and fracture reduction. The wounds were then copiously irrigated with sterile saline. I then closed the iliotibial band and deep dermal tissue with #0 Vicryl suture. Subcutaneous tissues closed with 3-0 Vicryl suture, and skin was closed with gasper. Sterile dressings were then applied with Xeroform, sterile gauze, and foam tape. Drapes were then removed and traction apparatus was disconnected. The patient was awakened from general anesthesia, transferred over to the stretcher, and taken to the Post Anesthesia Care Unit in stable condition. There were no immediate complications from the procedure. I was present and scrubbed for the entire procedure. I attest to the content of the Intraoperative Record and any orders documented therein. Any exceptions are noted below.
--- NOTE | 2021-05-05 19:15 | Anesthesiology Progress Note ---
Date of Service May 05, 2021 Anesthesia Post Procedure Vital Signs Vital Signs: Temp Pulse Pulse Pulse Resp BP BP 05/05/21 19:05 83 16 162/87 H 05/05/21 18:55 36.9 C 83 15 185/98 H 05/05/21 16:26 36.9 C 76 18 05/05/21 15:44 36.4 C L 65 16 05/05/21 07:25 36.7 C 76 16 05/05/21 03:43 05/05/21 02:12 37.4 C 89 16 05/05/21 01:30 37.4 C 89 16 05/05/21 00:58 86 16 152/100 H 05/04/21 21:32 84 15 178/88 H 05/04/21 21:00 90 12 05/04/21 20:40 75 20 05/04/21 20:10 81 18 243/116 H 05/04/21 19:39 80 18 05/04/21 19:18 37.1 C 68 16 169/112 H BP Pulse Ox 05/05/21 19:05 100 05/05/21 18:55 100 05/05/21 16:26 174/77 H 98 05/05/21 15:44 158/68 H 95 05/05/21 07:25 184/84 H 96 05/05/21 03:43 187/96 H 05/05/21 02:12 207/104 H 96 05/05/21 01:30 207/104 H 96 05/05/21 00:58 96 05/04/21 21:32 05/04/21 21:00 05/04/21 20:40 96 05/04/21 20:10 05/04/21 19:39 96 05/04/21 19:18 96 Transfer of Care Handoff Completed per policy Notes Mental Status: alert / awake / arousable and participated in evaluation Patient Amnestic to Procedure: Yes Nausea / Vomiting: adequately controlled Pain: adequately controlled Airway Patency, RR, SpO2: stable & adequate BP & HR: stable & adequate Hydration State: stable & adequate Anesthetic Complications: no major complications apparent and Pt Satisfied with anesthetic care
[2021-05-05] MEDS ORDERED: NALOXONE HCL 0.4 MG/1 ML VIAL/CARP IV PRN (19:47)
[2021-05-05] MEDS: MELATONIN 3 MG TAB PO SCH (20:57)
--- NOTE | 2021-05-05 21:48 | Fluoroscopy Report ---
FL hip LT 2-3V CLINICAL HISTORY: LT TROCH NAIL COMPARISON STUDY: None FLUOROSCOPY TIME: 69.2 seconds. NUMBER OF FLUOROSCOPIC IMAGES: 3 FINDINGS: Intraoperative fluoroscopy images are presented for review and shows metallic yanira placement to the an atomical region of the left femoral shaft, fixating screw in anatomical region of the left femoral he ad as well as screw within proximal aspect of the left femoral metaphysis. IMPRESSION: Is above. ACT 112: Negative or not required by law. The above report was generated using voice recognition software. It may contain grammatical, syntax o r spelling errors. Electronically signed by: Pina Lewis DO 05/05/2021 9:47 PM
[2021-05-05] MEDS: ASPIRIN 325 MG ECTAB PO SCH (21:50)
--- NOTE | 2021-05-05 21:50 | XRay Report ---
XR hip LT min 2V CLINICAL HISTORY: Post-Operative implant position COMPARISON: May 05, 2021 DISCUSSION: Interval placement of orthopedic hardware within proximal aspect of the left femur. Previously seen d isplaced intratrochanteric fracture now appear to be in near anatomical alignment. Subcutaneous gas and skin gasper are seen. Vascular calcifications are seen. IMPRESSION: Postoperative changes as detailed above. ACT 112: Negative or not required by law. The above report was generated using voice recognition software. It may contain grammatical, syntax o r spelling errors. Electronically signed by: Pina Lewis DO 05/05/2021 9:49 PM
[2021-05-06] MEDS: MoRPHine SULFATE 2 MG/ML CARP IV PRN ×2 (02:33→16:00)
[2021-05-06] MEDS: LEVOTHYROXINE SODIUM 125 MCG TABLET PO SCH (05:52)
[2021-05-06] MEDS: D5W AND NSS 1,000 ML IV SCH (05:53)
[2021-05-06 06:56] LABS: Basophils # (auto) 0.01 K/uL (0-0.2); Basophils % (auto) 0.1 %; Eosinophils # (auto) 0.01 K/uL (0-0.5); Eosinophils % (auto) 0.1 %; Hemoglobin 8.2 g/dL (12.0-16.0); Immature Granulocytes # (auto) 0.07 K/uL (0.00-0.02); Immature Granulocytes % (auto) 0.7 %; Lymphocytes # (auto) 1.27 K/uL (1.2-3.4); Lymphocytes % (auto) 13.3 %; Mean Corpuscular Hemoglobin 30.3 pg (25-34); Mean Corpuscular Hgb Conc 32.8 g/dL (32-36); Mean Corpuscular Volume 92.3 fL (80-100); Mean Platelet Volume 9.8 fL (7.4-10.4); Monocytes # (auto) 1.89 K/uL (0.11-0.59); Monocytes % (auto) 19.9 %; Neutrophils # (auto) 6.27 K/uL (1.4-6.5); Neutrophils % (auto) 65.9 %; Platelet Count 165 K/uL (130-400); RDW Coefficient of Variation 14.9 % (11.5-14.5); RDW Standard Deviation 50.5 fL (36.4-46.3); Red Blood Count 2.71 M/uL (4.2-5.4); White Blood Count 9.52 K/uL (4.8-10.8)
[2021-05-06] MEDS: DOCUSATE SODIUM 100 MG CAP PO SCH ×2 (07:39→20:48)
[2021-05-06] MEDS: amLODIPine BESYLATE 5 MG TAB PO SCH (07:40)
[2021-05-06] MEDS: ASPIRIN 325 MG ECTAB PO SCH ×2 (07:40→20:48)
[2021-05-06] MEDS: CHOLECALCIFEROL 1,000 UNITS 25 MCG TAB PO SCH (07:40)
[2021-05-06] MEDS: carvediloL 6.25 MG TAB PO SCH ×2 (07:40→20:49)
[2021-05-06] MEDS: busPIRone 5 MG TAB PO SCH ×2 (07:40→20:48)
[2021-05-06] MEDS: CITALOPRAM 20 MG TAB PO SCH (07:40)
[2021-05-06] MEDS: ALPRAZolam 0.5 MG TABLET PO SCH ×3 (07:42→20:48)
[2021-05-06 07:44] LABS: BUN Creatinine Ratio 21.3 (10-20); Calcium 8.2 mg/dl (8.5-10.1); Creatinine Clr Calc Pharmacy 29.2 ml/min; Est GFR (African American) 47.6 ml/min; Est GFR (Non-African American) 41.1 ml/min; Magnesium 1.9 mg/dl (1.8-2.4); Phosphorus 3.2 mg/dl (2.5-4.9); Potassium 3.5 mmol/L (3.5-5.1)
[2021-05-06] MEDS: ACETAMINOPHEN 325 MG TAB PO PRN (11:40)
--- NOTE | 2021-05-06 13:38 | Hospitalist Progress Note ---
Date of Service May 06, 2021 Assessment & Plan (1) Closed intertrochanteric fracture of left hip: Plan: History of recurrent mechanical falls. She had another fall on the day of admission with fracture of the left hip The daughter wanted to have it repaired Appreciate Ortho input. S/P Left Trochanteric Femoral Nail(Left) on 05/05 Doing Ok this morning. Does not appear to be in any pain. Work with PT/OT. d/c IVF; RN reported patient eating well. Post-opearitve blood loss anemia Hbg of 8.2 today from 12.6 on admission Will continue to monitor daily cbc. (2) Recurrent falls: Plan: Has multiple comorbid conditions as documented in H&P including breast cancer and is under hospice care at [facility] She walks with a walker (3) CAD (coronary artery disease): Plan: Had CAD with stent placement in the past No acute cardiac symptoms (4) Hypertension: Plan: Stable. Continue current medications (5) Hypothyroidism: Plan: Continue supplement (6) Dementia: Plan: History of severe dementia as per the daughter Minimally verbal Recognizes family members most of the time No acute confusion with recent injury DVT prophylaxis SCDs for now CODE STATUS DNR Admission and Anticipated Discharge Date Admission Date: May 04, 2021 Subjective Patient was resting comfortably. Patient did not appear to be in any distress. She is nonverbal, history of dementia. Could not obtain full review of system given her baseline mental status. Review of Systems Review of Systems: Unobtainable due to cognitive status Physical Exam Physical Exam: General: resting comfortably HENT: NCAT, MMM, EOMI Eyes: PERRLA Neck: Supple, normal range of motion CVS: normal rate and rhythm Resp: b/l good breath sounds Abdomen: Soft, ND/NT, +BS Extremities: No c/c/e Neuro: face symmetric, could not complete Skin: warm and dry, no rashes/lesions/errythema Results & Data Results & Data ([facility]) Vital Signs (Past 12 Hours) Vital Signs Temp Pulse Resp BP Pulse Ox 05/06/21 12:39 37.3 C 05/06/21 11:26 38.0 C H 95 H 28 H 105/52 L 95 05/06/21 07:19 36.8 C 91 H 16 109/65 94 05/06/21 03:08 36.3 C L 92 H 16 123/72 95
--- NOTE | 2021-05-06 17:25 | Orthopedic Progress Note ---
Date of Service May 06, 2021 Assessment & Plan (1) Closed intertrochanteric fracture of left hip: Plan: Postop day 1 status post left TFN. PT/OT protocols. Toe-touch weightbearing if able. DVT prophylaxis-aspirin p.o. twice daily, SCDs. Pain management as ordered Cute blood loss anemia-hemoglobin 8.2; transfuse as per medicine service. Admission and Anticipated Discharge Date Admission Date: May 04, 2021 Subjective Postop day 1 Patient sleeping in her bed. I am able to arouse her little bit to open her eyes but she does not answer any questions and goes back to sleep rather quickly. She appears comfortable. Physical Exam Physical Exam: Dressings are clean, dry, and intact. Thigh is soft and appears nontender. Calves are soft and appear nontender on palpation. She does not follow commands to move her feet. Feet are warm to the touch. Cap refills less than 2 seconds. Results & Data ([facility]) Vital Signs (Past 12 Hours) Vital Signs Temp Pulse Resp BP Pulse Ox 05/06/21 14:19 37.5 C 65 16 99/58 L 95 05/06/21 12:39 37.3 C 05/06/21 11:26 38.0 C H 95 H 28 H 105/52 L 95 05/06/21 07:19 36.8 C 91 H 16 109/65 94 Laboratory Results Laboratory Results WBC 9.52 K/uL (4.8-10.8) 05/06/21 06:30 RBC 2.71 M/uL (4.2-5.4) L 05/06/21 06:30 Hgb 8.2 g/dL (12.0-16.0) L D 05/06/21 06:30 Hct 25.0 % (37-47) L 05/06/21 06:30 MCV 92.3 fL (80-100) 05/06/21 06:30 MCH 30.3 pg (25-34) 05/06/21 06:30 MCHC 32.8 g/dL (32-36) 05/06/21 06:30 RDW Std Deviation 50.5 fL (36.4-46.3) H 05/06/21 06:30 RDW Coeff of Julio Cesar 14.9 % (11.5-14.5) H 05/06/21 06:30 Plt Count 165 K/uL (130-400) 05/06/21 06:30 MPV 9.8 fL (7.4-10.4) 05/06/21 06:30 Immature Gran % (Auto) 0.7 % 05/06/21 06:30 Neut % (Auto) 65.9 % 05/06/21 06:30 Lymph % (Auto) 13.3 % 05/06/21 06:30 [place] % (Auto) 19.9 % 05/06/21 06:30 Eos % (Auto) 0.1 % 05/06/21 06:30 Baso % (Auto) 0.1 % 05/06/21 06:30 Neut # (Auto) 6.27 K/uL (1.4-6.5) 05/06/21 06:30 Lymph # (Auto) 1.27 K/uL (1.2-3.4) 05/06/21 06:30 [place] # (Auto) 1.89 K/uL (0.11-0.59) H 05/06/21 06:30 Eos # (Auto) 0.01 K/uL (0-0.5) 05/06/21 06:30 Baso # (Auto) 0.01 K/uL (0-0.2) 05/06/21 06:30 Immature Gran # (Auto) 0.07 K/uL (0.00-0.02) H 05/06/21 06:30 PT 10.9 Seconds (9.0-12.0) 05/04/21 19:56 INR 1.1 (0.9-1.1) 05/04/21 19:56 APTT 24.4 Seconds (21.0-31.0) 05/04/21 19:56 PTT Ratio 0.9 05/04/21 19:56 Sodium 142 mmol/L (136-145) 05/06/21 06:30 Potassium 3.5 mmol/L (3.5-5.1) 05/06/21 06:30 Chloride 111 mmol/L (98-107) H 05/06/21 06:30 Carbon Dioxide 23 mmol/L (21-32) 05/06/21 06:30 Anion Gap 9.0 (3-11) 05/06/21 06:30 BUN 26 mg/dl (7-18) H 05/06/21 06:30 Creatinine 1.21 mg/dl (0.6-1.2) H D 05/06/21 06:30 Est Cr Clr Drug Dosing 29.2 ml/min 05/06/21 06:30 Est GFR ( Amer) 47.6 ml/min 05/06/21 06:30 Est GFR (Non-Af Amer) 41.1 ml/min 05/06/21 06:30 BUN/Creatinine Ratio 21.3 (10-20) H 05/06/21 06:30 Glucose 139 mg/dl (70-99) H 05/06/21 06:30 Calcium 8.2 mg/dl (8.5-10.1) L 05/06/21 06:30 Phosphorus 3.2 mg/dl (2.5-4.9) 05/06/21 06:30 Magnesium 1.9 mg/dl (1.8-2.4) 05/06/21 06:30 Total Bilirubin 0.6 mg/dl (0.2-1) 05/04/21 19:56 AST 23 U/L (15-37) 05/04/21 19:56 ALT 27 U/L (12-78) 05/04/21 19:56 Alkaline Phosphatase 75 U/L (45-117) 05/04/21 19:56 Total Protein 7.4 gm/dl (6.4-8.2) 05/04/21 19:56 Albumin 3.5 gm/dl (3.4-5.0) 05/04/21 19:56 Globulin 3.9 gm/dl (2.5-4.0) 05/04/21 19:56 Albumin/Globulin Ratio 0.9 (0.9-2) 05/04/21 19:56 Urine Color Yellow 05/04/21 22:25 Urine Appearance Clear (Clear) 05/04/21 22:25 Urine pH 7.0 (4.5-7.5) 05/04/21 22:25 Ur Specific [place] 1.017 (1.000-1.030) 05/04/21 22:25 Urine Protein Negative (Negative) 05/04/21 22:25 Urine Glucose (UA) Negative (Negative) 05/04/21 22:25 Urine Ketones 1+ (Negative) H 05/04/21 22:25 Urine Blood Negative (Negative) 05/04/21 22:25 Urine Nitrite Negative (Negative) 05/04/21 22:25 Urine Bilirubin Negative (Negative) 05/04/21 22:25 Urine Urobilinogen Negative (Negative) 05/04/21 22:25 Ur Leukocyte Esterase 1+ (Negative) H 05/04/21 22:25 Urine WBC (Auto) 1-5 /hpf (0-5) 05/04/21 22:25 Urine RBC (Auto) 5-10 /hpf (0-4) H 05/04/21 22:25 U Hyaline Cast (Auto) 0 /lpf (0-5) 05/04/21 22:25 U Epithel Cells (Auto) 20-30 /lpf (0-5) H 05/04/21 22:25 Urine Bacteria (Auto) Negative (Negative) 05/04/21 22:25 Nasal Screen MRSA (PCR) Negative (Negative) 05/05/21 08:30 COVID-19 Eval Order Covid19 at [facility] 05/04/21 21:50 SARS-CoV-2 (PCR) NEGATIVE (Negative) 05/04/21 21:50 Blood Type A Positive 05/04/21 19:56 Antibody Screen NEGATIVE 05/04/21 19:56 Hip X-Ray 05/05/21 19:01 XR hip LT min 2V CLINICAL HISTORY: Post-Operative implant position COMPARISON: May 05, 2021 DISCUSSION: Interval placement of orthopedic hardware within proximal aspect of the left femur. Previously seen displaced intratrochanteric fracture now appear to be in near anatomical alignment. Subcutaneous gas and skin gasper are seen. Vascular calcifications are seen. IMPRESSION: Postoperative changes as detailed above. ACT 112: Negative or not required by law. The above report was generated using voice recognition software. It may contain grammatical, syntax or spelling errors. Electronically signed by: Pina Lewis DO 05/05/2021 9:49 PM
[2021-05-06] MEDS: MELATONIN 3 MG TAB PO SCH (20:48)
[2021-05-07] MEDS: LEVOTHYROXINE SODIUM 125 MCG TABLET PO SCH (05:27)
[2021-05-07 06:38] LABS: Hematocrit (blood only) 20.3 % (37-47); Hemoglobin 6.7 g/dL (12.0-16.0); Mean Corpuscular Hemoglobin 30.7 pg (25-34); Mean Corpuscular Volume 93.1 fL (80-100); Mean Platelet Volume 10.1 fL (7.4-10.4); Platelet Count 135 K/uL (130-400); RDW Coefficient of Variation 15.1 % (11.5-14.5); RDW Standard Deviation 51.4 fL (36.4-46.3); Red Blood Count 2.18 M/uL (4.2-5.4); White Blood Count 6.56 K/uL (4.8-10.8)
[2021-05-07] MEDS ORDERED: SODIUM CHLORIDE 0.9% 250 ML IV PRN (06:40)
[2021-05-07] MEDS ORDERED: ALBUMIN 25% 12.5 GM/50 ML VIAL IV SCH (07:00)
[2021-05-07 07:01] LABS: Basophils # (auto) 0.01 K/uL (0-0.2); Basophils % (auto) 0.2 %; Eosinophils # (auto) 0.02 K/uL (0-0.5); Eosinophils % (auto) 0.3 %; Immature Granulocytes # (auto) 0.08 K/uL (0.00-0.02); Immature Granulocytes % (auto) 1.2 %; Lymphocytes # (auto) 1.37 K/uL (1.2-3.4); Lymphocytes % (auto) 20.9 %; Monocytes # (auto) 1.17 K/uL (0.11-0.59); Monocytes % (auto) 17.8 %; Neutrophils # (auto) 3.91 K/uL (1.4-6.5); Neutrophils % (auto) 59.6 %; RBC Morphology Unremarkable
[2021-05-07] MEDS: busPIRone 5 MG TAB PO SCH ×2 (07:32→20:03)
[2021-05-07] MEDS: CITALOPRAM 20 MG TAB PO SCH (07:32)
[2021-05-07] MEDS: CHOLECALCIFEROL 1,000 UNITS 25 MCG TAB PO SCH (07:32)
[2021-05-07] MEDS: carvediloL 6.25 MG TAB PO SCH ×2 (07:32→20:01)
[2021-05-07] MEDS: DOCUSATE SODIUM 100 MG CAP PO SCH ×2 (07:32→20:03)
[2021-05-07] MEDS: ASPIRIN 325 MG ECTAB PO SCH ×2 (07:32→20:03)
[2021-05-07] MEDS: amLODIPine BESYLATE 5 MG TAB PO SCH (07:32)
[2021-05-07] MEDS: ALPRAZolam 0.5 MG TABLET PO SCH ×3 (07:32→20:02)
[2021-05-07 07:35] LABS: Creatinine Clr Calc Pharmacy 24.2 ml/min; Est GFR (African American) 37.9 ml/min; Est GFR (Non-African American) 32.7 ml/min; Potassium 3.6 mmol/L (3.5-5.1)
[2021-05-07] MEDS: ACETAMINOPHEN 325 MG TAB PO PRN (08:30)
--- NOTE | 2021-05-07 09:26 | Orthopedic Progress Note ---
Date of Service May 07, 2021 Assessment & Plan (1) Closed intertrochanteric fracture of left hip: Plan: Postop day 2 status post left TFN. PT/OT protocols. Toe-touch weightbearing if able. DVT prophylaxis-aspirin p.o. twice daily, SCDs. Pain management as ordered Cute blood loss anemia-hemoglobin 6.7; PRBC's ordered by Med Service. Admission and Anticipated Discharge Date Admission Date: May 04, 2021 Subjective POD 2 Lying in bed. Arousable but goes back to sleep quickly. Appears comfortable. Physical Exam Physical Exam: Dressings intact. Thigh soft. Calves soft, appear NT. Not following commands. She does move her toes when taking her ankles through gentle prom. Results & Data ([facility]) Vital Signs (Past 12 Hours) Vital Signs Temp Pulse Pulse Resp BP BP Pulse Ox 05/07/21 09:00 36.3 C L 75 16 124/64 96 05/07/21 08:26 37.0 C 80 16 124/59 L 05/07/21 08:09 37.5 C 80 18 131/64 05/07/21 07:11 36.9 C 80 14 125/69 96 05/06/21 22:54 36.7 C 92 H 16 126/72 96
--- NOTE | 2021-05-07 10:21 | XRay Report ---
XR chest 1V portable CLINICAL HISTORY: Respiratory failure. COMPARISON STUDY: Chest radiograph May 04, 2021. FINDINGS: There is no pneumothorax. There is a probable small left pleural effusion. There is minimal left basilar opacity. There is cardiomegaly without evidence for pulmonary edema. Incidental note is made of severe osteoarthritis of the right shoulder with elevation of the humeral head. Patient is r otated. IMPRESSION: 1. Small left pleural effusion with minimal left basilar opacity. 2. Cardiomegaly without evidence for pulmonary edema. ACT 112: Negative or not required by law. Electronically signed by: Lucian Don M.D. 05/07/2021 10:20 AM
[2021-05-07 12:04] LABS: Appearance Urine Clear (Clear); Blood Urine Negative (Negative); Color Urine Dark Yellow; Glucose Urine UA Negative (Negative); Ketones Urine 1+ (Negative); Leukocyte Esterase Urine Negative (Negative); Nitrite Urine Negative (Negative); Protein Urine Negative (Negative); Specific Gravity Urine 1.027 (1.000-1.030); Urobilinogen Urine Negative (Negative)
[2021-05-07 12:07] LABS: Bilirubin Urine 1+ (Negative)
--- NOTE | 2021-05-07 15:02 | Hospitalist Progress Note ---
Date of Service May 07, 2021 Assessment & Plan (1) Closed intertrochanteric fracture of left hip: Plan: History of recurrent mechanical falls. She had another fall on the day of admission with fracture of the left hip The daughter wanted to have it repaired. Appreciate Ortho input. S/P Left Trochanteric Femoral Nail(Left) on 05/05 Doing Ok this morning. Does not appear to be in any pain. Work with PT/OT. Patient bladder scan this morning 290. Has not urinated since yesterday evening. Straight cath ordered. Post-opearitve acute blood loss anemia Hbg of 6.7 today from 12.6 on admission. Currently getting transfusion. Will obtain transfusion post PRBC. Will continue to monitor daily cbc. (2) Recurrent falls: Plan: Has multiple comorbid conditions as documented in H&P including breast cancer and is under hospice care at [facility] She walks with a walker (3) CAD (coronary artery disease): Plan: Had CAD with stent placement in the past No acute cardiac symptoms (4) Hypertension: Plan: Stable. Continue current medications (5) Hypothyroidism: Plan: Continue supplement (6) Dementia: Plan: History of severe dementia as per the daughter Minimally verbal Recognizes family members most of the time No acute confusion with recent injury DVT prophylaxis SCDs for now CODE STATUS DNR Admission and Anticipated Discharge Date Admission Date: May 04, 2021 Subjective Patient is resting comfortably. Nonverbal. Hemoglobin 6.7 this morning. Does not appear to be in any distress. Hemodynamically doing fine. Review of Systems Review of Systems: Unobtainable due to cognitive status Physical Exam Physical Exam: General: resting comfortably HENT: NCAT, MMM, EOMI Eyes: PERRLA Neck: Supple, normal range of motion CVS: normal rate and rhythm Resp: b/l good breath sounds Abdomen: Soft, ND/NT, +BS Extremities: L hip dressing is intact Neuro: face symmetric, could not complete Skin: warm and dry, no rashes/lesions/errythema Results & Data Results & Data ([facility]) Vital Signs (Past 12 Hours) Vital Signs Temp Pulse Pulse Resp BP BP BP 05/07/21 14:37 37.0 C 72 16 127/57 L 05/07/21 12:17 37.0 C 74 16 123/72 05/07/21 11:40 37.0 C 81 16 136/55 L 05/07/21 11:21 36.5 C 75 18 109/42 L 05/07/21 11:00 37.5 C 75 16 110/58 L 05/07/21 09:50 37.1 C 75 16 117/61 05/07/21 09:00 36.3 C L 75 16 124/64 05/07/21 08:26 37.0 C 80 16 124/59 L 05/07/21 08:09 37.5 C 80 18 131/64 05/07/21 07:11 36.9 C 80 14 125/69 Pulse Ox 05/07/21 14:37 95 05/07/21 12:17 95 05/07/21 11:40 94 05/07/21 11:21 05/07/21 11:00 05/07/21 09:50 96 05/07/21 09:00 96 05/07/21 08:26 05/07/21 08:09 05/07/21 07:11 96
[2021-05-07] MEDS: MoRPHine SULFATE 2 MG/ML CARP IV PRN (16:48)
[2021-05-07] MEDS ORDERED: Nursing to Pharmacy Communication SCH (17:15)
[2021-05-07 18:05] LABS: Basophils # (auto) 0.02 K/uL (0-0.2); Basophils % (auto) 0.2 %; Eosinophils # (auto) 0.06 K/uL (0-0.5); Eosinophils % (auto) 0.6 %; Hematocrit (blood only) 29.4 % (37-47); Hemoglobin 9.6 g/dL (12.0-16.0); Immature Granulocytes # (auto) 0.19 K/uL (0.00-0.02); Lymphocytes % (auto) 16.7 %; Mean Corpuscular Hemoglobin 30.1 pg (25-34); Mean Corpuscular Hgb Conc 32.7 g/dL (32-36); Mean Corpuscular Volume 92.2 fL (80-100); Mean Platelet Volume 9.9 fL (7.4-10.4); Monocytes # (auto) 1.71 K/uL (0.11-0.59); Monocytes % (auto) 17.9 %; Neutrophils # (auto) 5.98 K/uL (1.4-6.5); Neutrophils % (auto) 62.6 %; Platelet Count 134 K/uL (130-400); RDW Coefficient of Variation 14.7 % (11.5-14.5); RDW Standard Deviation 50.2 fL (36.4-46.3); Red Blood Count 3.19 M/uL (4.2-5.4); White Blood Count 9.56 K/uL (4.8-10.8)
[2021-05-07] MEDS: MELATONIN 3 MG TAB PO SCH (20:02)
[2021-05-08] MEDS: LEVOTHYROXINE SODIUM 125 MCG TABLET PO SCH (06:03)
[2021-05-08] MEDS: ALPRAZolam 0.5 MG TABLET PO SCH ×3 (09:52→20:43)
[2021-05-08] MEDS: amLODIPine BESYLATE 5 MG TAB PO SCH (09:52)
[2021-05-08] MEDS: busPIRone 5 MG TAB PO SCH ×2 (09:53→20:43)
[2021-05-08] MEDS: CITALOPRAM 20 MG TAB PO SCH (09:53)
[2021-05-08] MEDS: DOCUSATE SODIUM 100 MG CAP PO SCH ×3 (09:53→20:43)
[2021-05-08] MEDS: ASPIRIN 325 MG ECTAB PO SCH ×2 (09:53→20:44)
[2021-05-08] MEDS: carvediloL 6.25 MG TAB PO SCH ×2 (09:53→20:44)
[2021-05-08] MEDS: CHOLECALCIFEROL 1,000 UNITS 25 MCG TAB PO SCH (09:53)
--- NOTE | 2021-05-08 10:05 | Orthopedic Progress Note ---
Date of Service May 08, 2021 Assessment & Plan (1) Closed intertrochanteric fracture of left hip: Plan: Postop day 3 status post left TFN. PT/OT protocols. Toe-touch weightbearing if able. DVT prophylaxis-aspirin p.o. twice daily, SCDs. Pain management as ordered Cute blood loss anemia-hemoglobin 9.6 pos transfusion; Orthopedics will sign off at this time. Instructions placed in DC section. Please call with any questions. Admission and Anticipated Discharge Date Admission Date: May 04, 2021 Subjective POD 3 Pt sitting up in bed. Nursing is feeding her breakfast currently. Appears comfortable. Physical Exam Physical Exam: Incisions benign. Calves soft, NT. Toes mobile Results & Data ([facility]) Vital Signs (Past 12 Hours) Vital Signs Temp Pulse Resp BP Pulse Ox 05/08/21 07:32 37 C 82 18 149/67 H 97 05/07/21 23:06 37 C 81 16 151/62 H 95
--- NOTE | 2021-05-08 11:32 | Hospitalist Progress Note ---
Date of Service May 08, 2021 Assessment & Plan (1) Closed intertrochanteric fracture of left hip: Plan: History of recurrent mechanical falls with another fall on the day of admission with fracture of the left hip S/P Left Trochanteric Femoral Nail(Left) on 05/05 by Orthopedics NAD, no apparent discomfort. She is on aspirin 325 mg p.o. twice daily for DVT prophylaxis. Toe-touch weightbearing on this leg, however, with level of dementia, following instructions will be difficult. Some postoperative urinary retention was also noted, punctuated by urinary incontinence. Bladder scan every 6 hours (2) Postoperative anemia due to acute blood loss: Plan: Appropriate response to 1 unit of blood given yesterday. Hemoglobin remained stable and she is hemodynamically stable. Continue to monitor CBC. (3) Recurrent falls: Plan: Per notes ambulates with walker at baseline. She is currently toe-touch weightbearing, however dementia precludes successful communication, and this may be somewhat difficult. PT/OT is ordered to work with her here and she will transfer back to [facility] with rehab. Notably she is on scheduled Xanax which may contribute to owning which has been seen here and recurrent falls. Per PDMP she is on this for at least the last several months. Would recommend weaning this off as outpatient slowly. Will discuss this with daughter. (4) KORI (acute kidney injury): Plan: Nursing reports she is eating well at this point. Notable rise in creatinine postoperatively. She is getting NSAID therapy for DVT prophylaxis. Will repeat BMP and monitor p.o. intake. Urine studies ordered. (5) CAD (coronary artery disease): Plan: Chronic, stable. History of stent placement in the past. Continue medical management including aspirin and beta-autumn. (6) Hypertension: Plan: Controlled on current therapy. Continue amlodipine 5 mg daily, carvedilol 6.25 mg twice daily and good pain control efforts. (7) Hypothyroidism: Plan: Continue levothyroxine per home regimen. (8) Dementia: Plan: End-stage, continue supportive care and reorientation as needed. Continue good day night cycles. Patient has high risk of hospital induced delirium. Recently was on restraints which have been removed. (9) DVT prophylaxis: Plan: Aspirin 325 mg p.o. twice daily DNR/DNI Disposition-to [facility] with rehab likely after the weekend Dahlia Lancaster DO [facility] hospitalist Admission and Anticipated Discharge Date Admission Date: May 04, 2021 Subjective The patient is an 85-year-old female with dementia status post left TFN on 05/05 after a fall with left fracture of hip. She is nonverbal with minimal interaction with me upon questioning. Per primary nurse she has eaten her breakfast this morning and is incontinent of urine, which was documented on nursing notes overnight. Straight cath overnight was reported, however this was not recorded. Last straight cath reported was on 05/07 at 1152 for 400 mils. We discussed scheduled bladder scanning q6h Review of Systems Review of Systems: Review of systems could not be obtained secondary to dementia. Physical Exam Physical Exam: CONSTITUTIONAL: WNWD, vitals as above, NAD EYES: normal conjunctivae, no scleral icterus ENT: external ear and nose normal, MMM NECK: trachea midline RESPIRATORY: clear to auscultation bilaterally, no crackles, rales or wheezes, normal respiratory effort CARDIOVASCULAR: regular rate and rhythm, S1 and 2 heard without murmurs, gallops or rubs, no JVD, no peripheral edema CHEST: inspection of chest was normal GASTROINTESTINAL: soft, nontender, no guarding MUSCULOSKELETAL: strength 5/5 throughout, head is normocephalic and atraumatic SKIN: warm and dry, incision covered with clothing-not examined, no apparent drainage NEUROLOGIC: No facial palsy, she took some prompting to wake up but stayed awake for the assessment, she did not respond to questions or follow instructions. PSYCHIATRIC: Appears disoriented, however patient is nonverbal. Results & Data Results & Data ([facility]) Vital Signs (Past 12 Hours) Vital Signs Temp Pulse Resp BP Pulse Ox 05/08/21 07:32 37 C 82 18 149/67 H 97 Laboratory Results Short CBC 05/07/21 Range/Units 17:25 WBC 9.56 (4.8-10.8) K/uL Hgb 9.6 L (12.0-16.0) g/dL Hct 29.4 L (37-47) % Plt Count 134 (130-400) K/uL Urine 05/07/21 Range/Units 11:51 Urine Color Dark Yellow Urine Appearance Clear (Clear) Urine pH 5.0 (4.5-7.5) Ur Specific Raymond 1.027 (1.000-1.030) Urine Protein Negative (Negative) Urine Glucose (UA) Negative (Negative) Medications Administered Current Inpatient Medications Acetaminophen (Acetaminophen 325 Mg Tab) 650 mg PO Q4H PRN PRN Reason: pain/fever Stop: 06/04/21 02:03 Last Admin: 05/07/21 08:30 Dose: 650 mg Documented by: Alprazolam (Alprazolam 0.5 Mg Tablet) 0.5 mg PO TID [facility] Stop: 06/04/21 08:59 Last Admin: 05/08/21 09:52 Dose: 0.5 mg Documented by: Amlodipine Besylate (Amlodipine Besylate 5 Mg Tab) 5 mg PO DAILY [facility] Stop: 06/04/21 08:59 Last Admin: 05/08/21 09:52 Dose: 5 mg Documented by: Aspirin (Aspirin 325 Mg Ectab) 325 mg PO BID [facility] Stop: 06/04/21 20:59 Last Admin: 05/08/21 09:53 Dose: 325 mg Documented by: Buspirone HCl (Buspirone 5 Mg Tab) 5 mg PO BID [facility] Stop: 06/04/21 08:59 Last Admin: 05/08/21 09:53 Dose: 5 mg Documented by: Carvedilol (Carvedilol 6.25 Mg Tab) 6.25 mg PO BID [facility] Stop: 06/04/21 02:03 Last Admin: 05/08/21 09:53 Dose: 6.25 mg Documented by: Citalopram Hydrobromide (Citalopram 20 Mg Tab) 20 mg PO DAILY [facility] Stop: 06/04/21 08:59 Last Admin: 05/08/21 09:53 Dose: 20 mg Documented by: Docusate Sodium (Docusate Sodium 100 Mg Cap) 100 mg PO BID [facility] Stop: 06/04/21 08:59 Last Admin: 05/08/21 09:58 Dose: Not Given Documented by: Levothyroxine Sodium (Levothyroxine Sodium 125 Mcg Tablet) 125 mcg PO DAILYBB [facility] Stop: 06/04/21 06:29 Last Admin: 05/08/21 06:03 Dose: 125 mcg Documented by: Melatonin (Melatonin 3 Mg Tab) 3 mg PO HS [facility] Stop: 06/04/21 20:59 Last Admin: 05/07/21 20:02 Dose: 3 mg Documented by: Morphine Sulfate (Morphine Sulfate 2 Mg/Ml Carp) 2 mg IV Q3H PRN PRN Reason: Pain Stop: 05/19/21 02:03 Last Admin: 05/07/21 16:48 Dose: 2 mg Documented by: Naloxone HCl (Naloxone Hcl 0.4 Mg/1 Ml Vial/Carp) 0.1 mg IV Q5M PRN PRN Reason: Oversedation/Resp depression Stop: 06/04/21 19:46 Ondansetron HCl (Ondansetron Inj 2 Mg/Ml 2 Ml Vial) 4 mg IV Q6H PRN PRN Reason: Nausea Stop: 06/04/21 02:03 Polyethylene Glycol (Polyethylene (Miralax) 17 Gm Pack) 17 gm PO DAILY PRN PRN Reason: Constipation Stop: 06/04/21 02:03 Vitamin D (Cholecalciferol 1,000 Units 25 Mcg Tab) 1,000 units PO DAILY [facility] Stop: 06/04/21 08:59 Last Admin: 05/08/21 09:53 Dose: 1,000 units Documented by:
[2021-05-08 12:13] LABS: Hematocrit (blood only) 27.7 % (37-47); Hemoglobin 9.3 g/dL (12.0-16.0); Mean Corpuscular Hemoglobin 30.5 pg (25-34); Mean Corpuscular Hgb Conc 33.6 g/dL (32-36); Mean Corpuscular Volume 90.8 fL (80-100); Mean Platelet Volume 9.6 fL (7.4-10.4); Platelet Count 171 K/uL (130-400); RDW Coefficient of Variation 15.4 % (11.5-14.5); RDW Standard Deviation 50.3 fL (36.4-46.3); Red Blood Count 3.05 M/uL (4.2-5.4); White Blood Count 6.64 K/uL (4.8-10.8)
[2021-05-08 12:57] LABS: BUN Creatinine Ratio 35.3 (10-20); Calcium 8.1 mg/dl (8.5-10.1); Creatinine Clr Calc Pharmacy 58.9 ml/min; Est GFR (Non-African American) 83.7 ml/min; Potassium 3.6 mmol/L (3.5-5.1)
[2021-05-08] MEDS: ACETAMINOPHEN 325 MG TAB PO PRN (20:42)
[2021-05-08] MEDS: MELATONIN 3 MG TAB PO SCH (20:43)
[2021-05-09] MEDS: LEVOTHYROXINE SODIUM 125 MCG TABLET PO SCH (06:03)
[2021-05-09] MEDS: ALPRAZolam 0.5 MG TABLET PO SCH ×3 (08:39→20:53)
[2021-05-09] MEDS: busPIRone 5 MG TAB PO SCH ×2 (08:40→20:54)
[2021-05-09] MEDS: carvediloL 6.25 MG TAB PO SCH ×2 (08:40→20:56)
[2021-05-09] MEDS: ASPIRIN 325 MG ECTAB PO SCH ×2 (08:40→20:54)
[2021-05-09] MEDS: DOCUSATE SODIUM 100 MG CAP PO SCH ×2 (08:40→20:54)
[2021-05-09] MEDS: amLODIPine BESYLATE 5 MG TAB PO SCH (08:41)
[2021-05-09] MEDS: CHOLECALCIFEROL 1,000 UNITS 25 MCG TAB PO SCH (08:41)
[2021-05-09] MEDS: CITALOPRAM 20 MG TAB PO SCH (08:41)
--- NOTE | 2021-05-09 15:02 | Hospitalist Progress Note ---
Date of Service May 09, 2021 Assessment & Plan (1) Closed intertrochanteric fracture of left hip: Plan: History of recurrent mechanical falls with another fall on the day of admission with fracture of the left hip S/P Left Trochanteric Femoral Nail(Left) on 05/05 by Orthopedics NAD, no apparent discomfort. She is on aspirin 325 mg p.o. twice daily for DVT prophylaxis. Toe-touch weightbearing on this leg, however, with level of dementia, following instructions will be difficult. Some postoperative urinary retention was also noted, punctuated by urinary incontinence. Bladder scan every 6 hours --today although she was straight cathed she did not require it. Appears to be incontinent at baseline. (2) Postoperative anemia due to acute blood loss: Plan: Appropriate response to 1 unit of blood given. Hemoglobin remained stable and she is hemodynamically stable. Continue to monitor CBC. (3) Recurrent falls: Plan: Per notes ambulates with walker at baseline. She is currently toe-touch weightbearing, however dementia precludes successful communication, and this may be somewhat difficult. PT/OT is ordered to work with her here and she will transfer back to [facility] with rehab. Notably she is on scheduled Xanax which may contribute to sundowning which has been seen here and recurrent falls. Per PDMP she is on this for at least the last several months. Would recommend weaning this off as outpatient slowly. (4) KORI (acute kidney injury): Plan: Resolved to normal. (5) CAD (coronary artery disease): Plan: Chronic, stable. History of stent placement in the past. Continue medical management including aspirin and beta-autumn. (6) Hypertension: Plan: Controlled on current therapy. Continue amlodipine 5 mg daily, carvedilol 6.25 mg twice daily and good pain control efforts. (7) Hypothyroidism: Plan: Continue levothyroxine per home regimen. (8) Dementia: Plan: End-stage, continue supportive care and reorientation as needed. Continue good day night cycles. Patient has high risk of hospital induced delirium. Recently was on restraints which have been removed. (9) DVT prophylaxis: Plan: Aspirin 325 mg p.o. twice daily DNR/DNI Disposition-to [facility] with rehab likely after the weekend DO Kaylin Link hospitalist Admission and Anticipated Discharge Date Admission Date: May 04, 2021 Subjective The patient is an 85-year-old female with dementia status post left TFN on 05/05 after a fall with left fracture of hip. She is nonverbal with minimal interaction with me upon questioning. She has not changed much since yesterday. Tolerating PO, requires assistance with meals. Incontinent of urine. Did not participate in PT or OT today. Review of Systems Review of Systems: Unable to obtain review of systems as patient is demented Physical Exam Physical Exam: CONSTITUTIONAL: WNWD, vitals as above, NAD EYES: normal conjunctivae, no scleral icterus ENT: external ear and nose normal, MMM NECK: trachea midline RESPIRATORY: clear to auscultation bilaterally, no crackles, rales or wheezes, normal respiratory effort CARDIOVASCULAR: regular rate and rhythm, S1 and 2 heard without murmurs, gallops or rubs, no JVD, no peripheral edema CHEST: inspection of chest was normal GASTROINTESTINAL: soft, nontender, no guarding MUSCULOSKELETAL: strength 5/5 throughout, head is normocephalic and atraumatic SKIN: warm and dry, incision covered with clothing-not examined as she is laying on her surgical area NEUROLOGIC: No facial palsy, she took some prompting to wake up but stayed awake for the assessment, she did not respond to questions or follow instructions. PSYCHIATRIC: Lethargic opens her eyes but does not track me. States she cannot hear me but that is all she says. Does not follow instructions and does not answer questions. Results & Data Results & Data ([facility]) Vital Signs (Past 12 Hours) Vital Signs Temp Pulse Resp BP Pulse Ox 05/09/21 07:29 36.5 C 71 18 149/71 H 97 Medications Administered Current Inpatient Medications Acetaminophen (Acetaminophen 325 Mg Tab) 650 mg PO Q4H PRN PRN Reason: pain/fever Stop: 06/04/21 02:03 Last Admin: 05/08/21 20:42 Dose: 650 mg Documented by: Alprazolam (Alprazolam 0.5 Mg Tablet) 0.5 mg PO TID [facility] Stop: 06/04/21 08:59 Last Admin: 05/09/21 14:45 Dose: 0.5 mg Documented by: Amlodipine Besylate (Amlodipine Besylate 5 Mg Tab) 5 mg PO DAILY [facility] Stop: 06/04/21 08:59 Last Admin: 05/09/21 08:41 Dose: 5 mg Documented by: Aspirin (Aspirin 325 Mg Ectab) 325 mg PO BID [facility] Stop: 06/04/21 20:59 Last Admin: 05/09/21 08:40 Dose: 325 mg Documented by: Buspirone HCl (Buspirone 5 Mg Tab) 5 mg PO BID [facility] Stop: 06/04/21 08:59 Last Admin: 05/09/21 08:40 Dose: 5 mg Documented by: Carvedilol (Carvedilol 6.25 Mg Tab) 6.25 mg PO BID [facility] Stop: 06/04/21 02:03 Last Admin: 05/09/21 08:40 Dose: 6.25 mg Documented by: Citalopram Hydrobromide (Citalopram 20 Mg Tab) 20 mg PO DAILY [facility] Stop: 06/04/21 08:59 Last Admin: 05/09/21 08:41 Dose: 20 mg Documented by: Docusate Sodium (Docusate Sodium 100 Mg Cap) 100 mg PO BID [facility] Stop: 06/04/21 08:59 Last Admin: 05/09/21 08:40 Dose: 100 mg Documented by: Levothyroxine Sodium (Levothyroxine Sodium 125 Mcg Tablet) 125 mcg PO DAILYBB [facility] Stop: 06/04/21 06:29 Last Admin: 05/09/21 06:03 Dose: 125 mcg Documented by: Melatonin (Melatonin 3 Mg Tab) 3 mg PO HS [facility] Stop: 06/04/21 20:59 Last Admin: 05/08/21 20:43 Dose: 3 mg Documented by: Morphine Sulfate (Morphine Sulfate 2 Mg/Ml Carp) 2 mg IV Q3H PRN PRN Reason: Pain Stop: 05/19/21 02:03 Last Admin: 05/07/21 16:48 Dose: 2 mg Documented by: Naloxone HCl (Naloxone Hcl 0.4 Mg/1 Ml Vial/Carp) 0.1 mg IV Q5M PRN PRN Reason: Oversedation/Resp depression Stop: 06/04/21 19:46 Ondansetron HCl (Ondansetron Inj 2 Mg/Ml 2 Ml Vial) 4 mg IV Q6H PRN PRN Reason: Nausea Stop: 06/04/21 02:03 Polyethylene Glycol (Polyethylene (Miralax) 17 Gm Pack) 17 gm PO DAILY PRN PRN Reason: Constipation Stop: 06/04/21 02:03 Vitamin D (Cholecalciferol 1,000 Units 25 Mcg Tab) 1,000 units PO DAILY [facility] Stop: 06/04/21 08:59 Last Admin: 05/09/21 08:41 Dose: 1,000 units Documented by:
[2021-05-09] MEDS: MELATONIN 3 MG TAB PO SCH (20:53)
[2021-05-10] MEDS: LEVOTHYROXINE SODIUM 125 MCG TABLET PO SCH (05:20)
[2021-05-10 07:05] LABS: Hematocrit (blood only) 28.2 % (37-47); Hemoglobin 9.1 g/dL (12.0-16.0); Mean Corpuscular Hemoglobin 30.1 pg (25-34); Mean Corpuscular Hgb Conc 32.3 g/dL (32-36); Mean Corpuscular Volume 93.4 fL (80-100); Mean Platelet Volume 9.9 fL (7.4-10.4); Platelet Count 202 K/uL (130-400); RDW Coefficient of Variation 15.1 % (11.5-14.5); RDW Standard Deviation 51.6 fL (36.4-46.3); Red Blood Count 3.02 M/uL (4.2-5.4); White Blood Count 6.17 K/uL (4.8-10.8)
[2021-05-10 07:38] LABS: BUN Creatinine Ratio 35.3 (10-20); Calcium 8.7 mg/dl (8.5-10.1); Creatinine Clr Calc Pharmacy 63.2 ml/min; Est GFR (African American) 99.2 ml/min; Est GFR (Non-African American) 85.6 ml/min; Potassium 3.5 mmol/L (3.5-5.1)
[2021-05-10] MEDS: carvediloL 6.25 MG TAB PO SCH ×2 (08:16→20:58)
[2021-05-10] MEDS: CHOLECALCIFEROL 1,000 UNITS 25 MCG TAB PO SCH (08:17)
[2021-05-10] MEDS: ASPIRIN 325 MG ECTAB PO SCH ×2 (08:17→20:57)
[2021-05-10] MEDS: CITALOPRAM 20 MG TAB PO SCH (08:17)
[2021-05-10] MEDS: busPIRone 5 MG TAB PO SCH ×2 (08:17→20:57)
[2021-05-10] MEDS: amLODIPine BESYLATE 5 MG TAB PO SCH (08:17)
[2021-05-10] MEDS: DOCUSATE SODIUM 100 MG CAP PO SCH ×2 (08:17→20:57)
[2021-05-10] MEDS: ALPRAZolam 0.5 MG TABLET PO SCH ×3 (08:20→20:58)
--- NOTE | 2021-05-10 15:29 | Hospitalist Progress Note ---
Date of Service May 10, 2021 Assessment & Plan (1) Closed intertrochanteric fracture of left hip: Plan: History of recurrent mechanical falls with another fall on the day of admission with fracture of the left hip S/P Left Trochanteric Femoral Nail(Left) on 05/05 by Orthopedics NAD, no apparent discomfort. She is on aspirin 325 mg p.o. twice daily for DVT prophylaxis. Toe-touch weightbearing on this leg, however, with level of dementia, following instructions will be difficult. Patient has been experiencing postoperative urinary retention, she does have history of urine incontinence. Continue to monitor urine outputs. Currently awaiting placement. (2) Postoperative anemia due to acute blood loss: Plan: Appropriate response to 1 unit of blood given. Hemoglobin remained stable and she is hemodynamically stable. Continue to monitor CBC. (3) Recurrent falls: Plan: Per notes ambulates with walker at baseline. She is currently toe-touch weightbearing, however dementia precludes successful communication, and this may be somewhat difficult. PT/OT is ordered to work with her here and she will transfer back to [facility] with rehab. Notably she is on scheduled Xanax which may contribute to sundowning which has been seen here and recurrent falls. Per PDMP she is on this for at least the last several months. Would recommend weaning this off as outpatient slowly. (4) KORI (acute kidney injury): Plan: Resolved to normal. (5) CAD (coronary artery disease): Plan: Chronic, stable. History of stent placement in the past. Continue medical management including aspirin and beta-autumn. (6) Hypertension: Plan: Controlled on current therapy. Continue amlodipine 5 mg daily, carvedilol 6.25 mg twice daily and good pain control efforts. (7) Hypothyroidism: Plan: Continue levothyroxine per home regimen. (8) Dementia: Plan: End-stage, continue supportive care and reorientation as needed. Continue good day night cycles. Patient has high risk of hospital induced delirium. Recently was on restraints which have been removed. (9) DVT prophylaxis: Plan: Aspirin 325 mg p.o. twice daily DNR/DNI Disposition-to [facility] with rehab likely after the weekend. Admission and Anticipated Discharge Date Admission Date: May 04, 2021 Subjective Patient was resting comfortably. She is nonverbal. Does not appear to be in any distress. Review of Systems Review of Systems: Unobtainable due to cognitive status Physical Exam Physical Exam: General: resting comfortably HENT: NCAT, MMM, EOMI Eyes: PERRLA Neck: Supple, normal range of motion CVS: normal rate and rhythm Resp: b/l good breath sounds Abdomen: Soft, ND/NT, +BS Extremities: L hip dressing is intact Neuro: face symmetric, could not complete Skin: warm and dry, no rashes/lesions/errythema Results & Data Results & Data ([facility]) Vital Signs (Past 12 Hours) Vital Signs Temp Pulse Resp BP Pulse Ox 05/10/21 14:58 36.6 C 78 16 160/71 H 93 05/10/21 07:12 36.9 C 78 16 179/79 H 93
[2021-05-10] MEDS: MELATONIN 3 MG TAB PO SCH (20:58)
[2021-05-11] MEDS: LEVOTHYROXINE SODIUM 125 MCG TABLET PO SCH (05:44)
[2021-05-11] MEDS: CHOLECALCIFEROL 1,000 UNITS 25 MCG TAB PO SCH (08:11)
[2021-05-11] MEDS: carvediloL 6.25 MG TAB PO SCH ×2 (08:11→19:59)
[2021-05-11] MEDS: CITALOPRAM 20 MG TAB PO SCH (08:11)
[2021-05-11] MEDS: amLODIPine BESYLATE 5 MG TAB PO SCH (08:11)
[2021-05-11 08:12] LABS: Basophils # (auto) 0.02 K/uL (0-0.2); Basophils % (auto) 0.3 %; Eosinophils # (auto) 0.07 K/uL (0-0.5); Eosinophils % (auto) 1.1 %; Hematocrit (blood only) 29.8 % (37-47); Hemoglobin 9.4 g/dL (12.0-16.0); Immature Granulocytes % (auto) 4.7 %; Lymphocytes # (auto) 1.43 K/uL (1.2-3.4); Lymphocytes % (auto) 22.6 %; Mean Corpuscular Hemoglobin 29.7 pg (25-34); Mean Corpuscular Hgb Conc 31.5 g/dL (32-36); Monocytes # (auto) 1.08 K/uL (0.11-0.59); Monocytes % (auto) 17.1 %; Neutrophils # (auto) 3.42 K/uL (1.4-6.5); Neutrophils % (auto) 54.2 %; Platelet Count 238 K/uL (130-400); RDW Coefficient of Variation 14.9 % (11.5-14.5); RDW Standard Deviation 51.4 fL (36.4-46.3); Red Blood Count 3.17 M/uL (4.2-5.4); White Blood Count 6.32 K/uL (4.8-10.8)
[2021-05-11] MEDS: ASPIRIN 325 MG ECTAB PO SCH ×2 (08:12→19:59)
[2021-05-11] MEDS: busPIRone 5 MG TAB PO SCH ×2 (08:12→19:58)
[2021-05-11] MEDS: ALPRAZolam 0.5 MG TABLET PO SCH ×3 (08:12→19:58)
[2021-05-11] MEDS: DOCUSATE SODIUM 100 MG CAP PO SCH ×2 (08:12→19:58)
--- NOTE | 2021-05-11 16:51 | Hospitalist Progress Note ---
Date of Service May 11, 2021 Assessment & Plan (1) Closed intertrochanteric fracture of left hip: Plan: History of recurrent mechanical falls with another fall on the day of admission with fracture of the left hip S/P Left Trochanteric Femoral Nail(Left) on 05/05 by Orthopedics NAD, no apparent discomfort. She is on aspirin 325 mg p.o. twice daily for DVT prophylaxis. Toe-touch weightbearing on this leg, however, with level of dementia, following instructions will be difficult. Patient has been experiencing postoperative urinary retention, she does have history of urine incontinence. Continue to monitor urine outputs. Currently awaiting placement. (2) Postoperative anemia due to acute blood loss: Plan: Appropriate response to 1 unit of blood given. Hemoglobin remained stable and she is hemodynamically stable. Continue to monitor CBC. (3) Recurrent falls: Plan: Per notes ambulates with walker at baseline. She is currently toe-touch weightbearing, however dementia precludes successful communication, and this may be somewhat difficult. PT/OT is ordered to work with her here and she will transfer back to [facility] with rehab. Notably she is on scheduled Xanax which may contribute to sundowning which has been seen here and recurrent falls. Per PDMP she is on this for at least the last several months. Would recommend weaning this off as outpatient slowly. (4) KORI (acute kidney injury): Plan: Resolved to normal. (5) CAD (coronary artery disease): Plan: Chronic, stable. History of stent placement in the past. Continue medical management including aspirin and beta-autumn. (6) Hypertension: Plan: Controlled on current therapy. Continue amlodipine 5 mg daily, carvedilol 6.25 mg twice daily and good pain control efforts. (7) Hypothyroidism: Plan: Continue levothyroxine per home regimen. (8) Dementia: Plan: End-stage, continue supportive care and reorientation as needed. Continue good day night cycles. Patient has high risk of hospital induced delirium. Recently was on restraints which have been removed. (9) DVT prophylaxis: Plan: Aspirin 325 mg p.o. twice daily DNR/DNI Disposition-to [facility] with rehab likely after the weekend. Admission and Anticipated Discharge Date Admission Date: May 04, 2021 Subjective Patient resting comfortably. Patient is nonverbal. Unable to obtain full review of system given her baseline mental status. Review of Systems Review of Systems: All systems reviewed & are unremarkable except as noted in HPI & below Physical Exam Physical Exam: General: resting comfortably HENT: NCAT, MMM, EOMI Eyes: PERRLA Neck: Supple, normal range of motion CVS: normal rate and rhythm Resp: b/l good breath sounds Abdomen: Soft, ND/NT, +BS Extremities: L hip dressing is intact Neuro: face symmetric, could not complete Skin: warm and dry, no rashes/lesions/errythema Results & Data Results & Data ([facility]) Vital Signs (Past 12 Hours) Vital Signs Temp Pulse Pulse Resp BP Pulse Ox 05/11/21 15:43 36.2 C L 74 94 H 16 144/74 H 94 05/11/21 07:55 36.6 C 67 16 165/69 H 98
[2021-05-11] MEDS: MELATONIN 3 MG TAB PO SCH (19:58)
[2021-05-12] MEDS: LEVOTHYROXINE SODIUM 125 MCG TABLET PO SCH (06:03)
[2021-05-12 07:00] LABS: Hematocrit (blood only) 28.5 % (37-47); Mean Corpuscular Hemoglobin 29.9 pg (25-34); Mean Corpuscular Hgb Conc 31.6 g/dL (32-36); Mean Corpuscular Volume 94.7 fL (80-100); Mean Platelet Volume 9.7 fL (7.4-10.4); Platelet Count 255 K/uL (130-400); RDW Coefficient of Variation 14.9 % (11.5-14.5); RDW Standard Deviation 51.3 fL (36.4-46.3); Red Blood Count 3.01 M/uL (4.2-5.4); White Blood Count 5.77 K/uL (4.8-10.8)
[2021-05-12 07:14] VITALS: TEMP 98.2; O2SAT 96
[2021-05-12 07:29] LABS: BUN Creatinine Ratio 28.1 (10-20); Calcium 8.4 mg/dl (8.5-10.1); Creatinine Clr Calc Pharmacy 63.2 ml/min; Est GFR (African American) 99.2 ml/min; Est GFR (Non-African American) 85.6 ml/min; Magnesium 2.1 mg/dl (1.8-2.4); Phosphorus 3.1 mg/dl (2.5-4.9); Potassium 3.5 mmol/L (3.5-5.1)
[2021-05-12 07:51] LABS: Basophils # (auto) 0.01 K/uL (0-0.2); Basophils % (auto) 0.2 %; Eosinophils # (auto) 0.09 K/uL (0-0.5); Eosinophils % (auto) 1.6 %; Immature Granulocytes # (auto) 0.37 K/uL (0.00-0.02); Immature Granulocytes % (auto) 6.4 %; Lymphocytes # (auto) 1.62 K/uL (1.2-3.4); Lymphocytes % (auto) 28.1 %; Monocytes # (auto) 0.96 K/uL (0.11-0.59); Monocytes % (auto) 16.6 %; Neutrophils # (auto) 2.72 K/uL (1.4-6.5); Neutrophils % (auto) 47.1 %
--- NOTE | 2021-05-12 09:26 | Hospitalist Progress Note ---
Date of Service May 12, 2021 Assessment & Plan (1) Closed intertrochanteric fracture of left hip: Plan: History of recurrent mechanical falls with another fall on the day of admission with fracture of the left hip S/P Left Trochanteric Femoral Nail(Left) on 05/05 by Orthopedics NAD, no apparent discomfort. She is on aspirin 325 mg p.o. twice daily for DVT prophylaxis. Toe-touch weightbearing on this leg, however, with level of dementia, following instructions will be difficult. Patient has been experiencing postoperative urinary retention, she does have history of urine incontinence. Continue to monitor urine outputs. Currently awaiting placement. (2) Postoperative anemia due to acute blood loss: Plan: Appropriate response to 1 unit of blood given. Hemoglobin remained stable and she is hemodynamically stable. Continue to monitor CBC. (3) Recurrent falls: Plan: Per notes ambulates with walker at baseline. She is currently toe-touch weightbearing, however dementia precludes successful communication, and this may be somewhat difficult. PT/OT is ordered to work with her here and she will transfer back to [facility] with rehab. Notably she is on scheduled Xanax which may contribute to sundowning which has been seen here and recurrent falls. Per PDMP she is on this for at least the last several months. Would recommend weaning this off as outpatient slowly. (4) KORI (acute kidney injury): Plan: Resolved to normal. (5) CAD (coronary artery disease): Plan: Chronic, stable. History of stent placement in the past. Continue medical management including aspirin and beta-autumn. (6) Hypertension: Plan: Controlled on current therapy. Continue amlodipine 5 mg daily, carvedilol 6.25 mg twice daily and good pain control efforts. (7) Hypothyroidism: Plan: Continue levothyroxine per home regimen. (8) Dementia: Plan: End-stage, continue supportive care and reorientation as needed. Continue good day night cycles. Patient has high risk of hospital induced delirium. Recently was on restraints which have been removed. (9) DVT prophylaxis: Plan: Aspirin 325 mg p.o. twice daily DNR/DNI Disposition-to [facility] with rehab possibly today. Admission and Anticipated Discharge Date Admission Date: May 04, 2021 Subjective Patient seen in follow up of hip fx She is resting comfortably. Patient is nonverbal. Unable to obtain full review of system given her baseline mental status. Per nursing staff patient's been doing well, feeding herself this morning for breakfast, also had a bowel movement this morning. Review of Systems Review of Systems: All systems reviewed & are unremarkable except as noted in Subjective Physical Exam Physical Exam: General: elderly F, resting comfortably, in nAD HENT: NCAT, MMM, EOMI Eyes: PERRLA Neck: Supple, normal range of motion CVS: normal rate and rhythm Resp: b/l good breath sounds Abdomen: Soft, ND/NT, +BS Extremities: L hip dressing is intact Neuro: face symmetric, could not complete, does not follow commands (at baseline) Skin: warm and dry, no rashes/lesions/erythema Results & Data Results & Data ([facility]) Vital Signs (Past 12 Hours) Vital Signs Temp Pulse Pulse Resp BP Pulse Ox 05/12/21 07:13 36.8 C 75 16 145/68 H 96 05/11/21 22:34 36.9 C 72 17 129/65 97 Laboratory Results 05/12/21 05/12/21 05/04/21 Range/Units 06:30 06:30 19:56 WBC 5.77 (4.8-10.8) K/uL RBC 3.01 L (4.2-5.4) M/uL Hgb 9.0 L (12.0-16.0) g/dL Hct 28.5 L (37-47) % MCV 94.7 (80-100) fL MCH 29.9 (25-34) pg MCHC 31.6 L (32-36) g/dL RDW Std Deviation 51.3 H (36.4-46.3) fL RDW Coeff of Julio Cesar 14.9 H (11.5-14.5) % Plt Count 255 (130-400) K/uL MPV 9.7 (7.4-10.4) fL Immature Gran % (Auto) 6.4 % Neut % (Auto) 47.1 % Lymph % (Auto) 28.1 % Crockett % (Auto) 16.6 % Eos % (Auto) 1.6 % Baso % (Auto) 0.2 % Neut # (Auto) 2.72 (1.4-6.5) K/uL Lymph # (Auto) 1.62 (1.2-3.4) K/uL Crockett # (Auto) 0.96 H (0.11-0.59) K/uL Eos # (Auto) 0.09 (0-0.5) K/uL Baso # (Auto) 0.01 (0-0.2) K/uL Immature Gran # (Auto) 0.37 H (0.00-0.02) K/uL Sodium 140 (136-145) mmol/L Potassium 3.5 (3.5-5.1) mmol/L Chloride 109 H (98-107) mmol/L Carbon Dioxide 27 (21-32) mmol/L Anion Gap 4.0 (3-11) BUN 16 (7-18) mg/dl Creatinine 0.56 L (0.6-1.2) mg/dl Est Cr Clr Drug Dosing 63.2 ml/min Est GFR ( Amer) 99.2 ml/min Est GFR (Non-Af Amer) 85.6 ml/min BUN/Creatinine Ratio 28.1 H (10-20) Glucose 83 (70-99) mg/dl Calcium 8.4 L (8.5-10.1) mg/dl Phosphorus 3.1 (2.5-4.9) mg/dl Magnesium 2.1 (1.8-2.4) mg/dl Crossmatch See Detail Medications Administered Current Inpatient Medications Acetaminophen (Acetaminophen 325 Mg Tab) 650 mg PO Q4H PRN PRN Reason: pain/fever Stop: 06/04/21 02:03 Last Admin: 05/08/21 20:42 Dose: 650 mg Documented by: Alprazolam (Alprazolam 0.5 Mg Tablet) 0.5 mg PO TID [facility] Stop: 06/04/21 08:59 Last Admin: 05/11/21 19:58 Dose: 0.5 mg Documented by: Amlodipine Besylate (Amlodipine Besylate 5 Mg Tab) 5 mg PO DAILY [facility] Stop: 06/04/21 08:59 Last Admin: 05/11/21 08:11 Dose: 5 mg Documented by: Aspirin (Aspirin 325 Mg Ectab) 325 mg PO BID [facility] Stop: 06/04/21 20:59 Last Admin: 05/11/21 19:59 Dose: 325 mg Documented by: Buspirone HCl (Buspirone 5 Mg Tab) 5 mg PO BID [facility] Stop: 06/04/21 08:59 Last Admin: 05/11/21 19:58 Dose: 5 mg Documented by: Carvedilol (Carvedilol 6.25 Mg Tab) 6.25 mg PO BID [facility] Stop: 06/04/21 02:03 Last Admin: 05/11/21 19:59 Dose: 6.25 mg Documented by: Citalopram Hydrobromide (Citalopram 20 Mg Tab) 20 mg PO DAILY [facility] Stop: 06/04/21 08:59 Last Admin: 05/11/21 08:11 Dose: 20 mg Documented by: Docusate Sodium (Docusate Sodium 100 Mg Cap) 100 mg PO BID [facility] Stop: 06/04/21 08:59 Last Admin: 05/11/21 19:58 Dose: 100 mg Documented by: Levothyroxine Sodium (Levothyroxine Sodium 125 Mcg Tablet) 125 mcg PO DAILYBB [facility] Stop: 06/04/21 06:29 Last Admin: 05/12/21 06:03 Dose: 125 mcg Documented by: Melatonin (Melatonin 3 Mg Tab) 3 mg PO HS [facility] Stop: 06/04/21 20:59 Last Admin: 05/11/21 19:58 Dose: 3 mg Documented by: Morphine Sulfate (Morphine Sulfate 2 Mg/Ml Carp) 2 mg IV Q3H PRN PRN Reason: Pain Stop: 05/19/21 02:03 Last Admin: 05/07/21 16:48 Dose: 2 mg Documented by: Naloxone HCl (Naloxone Hcl 0.4 Mg/1 Ml Vial/Carp) 0.1 mg IV Q5M PRN PRN Reason: Oversedation/Resp depression Stop: 06/04/21 19:46 Ondansetron HCl (Ondansetron Inj 2 Mg/Ml 2 Ml Vial) 4 mg IV Q6H PRN PRN Reason: Nausea Stop: 06/04/21 02:03 Polyethylene Glycol (Polyethylene (Miralax) 17 Gm Pack) 17 gm PO DAILY PRN PRN Reason: Constipation Stop: 06/04/21 02:03 Potassium Chloride (Potassium Chloride Crtab 20 Meq Tabcr) 20 meq PO QAM [facility] Stop: 06/11/21 09:29 Vitamin D (Cholecalciferol 1,000 Units 25 Mcg Tab) 1,000 units PO DAILY [facility] Stop: 06/04/21 08:59 Last Admin: 05/11/21 08:11 Dose: 1,000 units Documented by:
[2021-05-12] MEDS ORDERED: POTASSIUM CHLORIDE CRTAB 20 MEQ TABCR PO SCH (09:30)
[2021-05-12] MEDS: carvediloL 6.25 MG TAB PO SCH (10:10)
[2021-05-12] MEDS: CHOLECALCIFEROL 1,000 UNITS 25 MCG TAB PO SCH (10:11)
[2021-05-12] MEDS: CITALOPRAM 20 MG TAB PO SCH (10:11)
[2021-05-12] MEDS: amLODIPine BESYLATE 5 MG TAB PO SCH (10:11)
[2021-05-12] MEDS: ASPIRIN 325 MG ECTAB PO SCH (10:11)
[2021-05-12] MEDS: busPIRone 5 MG TAB PO SCH (10:12)
[2021-05-12] MEDS: DOCUSATE SODIUM 100 MG CAP PO SCH (10:12)
[2021-05-12] MEDS: ALPRAZolam 0.5 MG TABLET PO SCH ×2 (10:15→15:44)
--- NOTE | 2021-05-12 10:19 | Discharge Summary ---
Date of Service May 12, 2021 Admission HPI Per Admitting Provider This is an 85-year-old female with past medical history significant for CAD, status post stent, hypertension, hypothyroidism, depression, anxiety,hx of breast cancer who lives at [facility], presents with a fall and left hip fracture. Daughter is in the room. As per the daughter, the patient has severe dementia, she can recognize family members, but 90% of the time, she does not make sense. She is on soft diet and she is supposed to walk with a walker, but she forgets to use the walker and she is falling frequentlyl. She had multiple falls. On 03/18/2021, she was in our ER and found to have chronic left and subacute sacral fractures and also old ischiopubic fractures, which are chronic, and today again, she fell and presents with left hip fracture. The patient is currently resting comfortably. The patient is very hard of hearing and has dementia, very poor historian. Denies any pain currently. As per daughter, there is no recent fever or chills. No recent cough. No recent nausea or vomiting. No diarrhea or constipation. No pain. Daughter states since January, the patient has lost a lot of weight, almost 7-8 pounds per month. Admission Exam Per Admitting Provider GENERAL: The patient is old and frail, not in acute distress. VITAL SIGNS: Temperature 37.1, pulse 84, respiratory rate 15, blood pressure 117/88, oxygen 96% on room air. HEENT: Pupils equal, round and reactive to light. Oral mucosa moist. NECK: No JVD, no neck masses. CARDIOVASCULAR: S1 and S2 heard. Regular rate and rhythm. No murmur, no gallop. RESPIRATORY SYSTEM: Normal AP diameter. No accessory muscle use. No wheezing, no crackles. ABDOMEN: Soft, bowel sounds present, nontender, nondistended. CENTRAL NERVOUS SYSTEM: Alert and awake. Obeys simple commands. No facial droop seen. Speech is clear. EXTREMITIES: Left lower extremity shortened and externally rotated. No edema, no erythema seen. Principal Diagnosis Closed intertrochanteric fracture of left hip KORI Dementia Acute post-operative blood loss anemia Discharge Exam General: elderly F, resting comfortably, in nAD HENT: NCAT, MMM, EOMI Eyes: PERRLA Neck: Supple, normal range of motion CVS: normal rate and rhythm Resp: b/l good breath sounds Abdomen: Soft, ND/NT, +BS Extremities: L hip dressing is intact Neuro: face symmetric, could not complete, does not follow commands (at baseline) Skin: warm and dry, no rashes/lesions/erythema Discharge Data Allergies Allergy/AdvReac Type Severity Reaction Status Date / Time enalapril Allergy Unknown Verified 05/04/21 19:44 naproxen [From Naprosyn] Allergy Unknown Verified 05/04/21 19:44 Consultations 05/04/21 22:01 ED Decision to Admit Stat 05/05/21 08:00 Consult Orthopedic Surgery Routine Procedures Performed Operation Date: 05/05/21 08:20 Actual Procedures p Left hip short cephalomedullary nailing for intertrochanteric femur fracture(Left) - Arnulfo Field M.D. Ordered Studies 05/04/21 19:38 CT pelvis wo con Stat IMPRESSION: 1. Acute moderately displaced, comminuted intertrochanteric fracture of the left femur. Adjacent intramuscular hemorrhage. No additional acute fractures within the pelvis or hips. 2. Old right ischiopubic ring fractures with extensive bone formation and deformity at the symphysis pubis. 3. Old bilateral sacral fractures. 4. 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 05/05/21 16:30 FL hip LT 2-3V Routine Hospital Course (1) Closed intertrochanteric fracture of left hip: History of recurrent mechanical falls with another fall on the day of admission with fracture of the left hip S/P Left Trochanteric Femoral Nail(Left) on 05/05 by Orthopedics NAD, no apparent discomfort. She is on aspirin 325 mg p.o. twice daily for DVT prophylaxis. Toe-touch weightbearing on this leg, however, with level of dementia, following instructions will be difficult. Patient has been experiencing postoperative urinary retention, she does have history of urine incontinence. Continue to monitor urine outputs. Currently awaiting placement. (2) Postoperative anemia due to acute blood loss: Appropriate response to 1 unit of blood given. Hemoglobin remained stable and she is hemodynamically stable. Continue to monitor CBC. (3) Recurrent falls: Per notes ambulates with walker at baseline. She is currently toe-touch weightbearing, however dementia precludes successful communication, and this may be somewhat difficult. PT/OT is ordered to work with her here and she will transfer back to [facility] with rehab. Notably she is on scheduled Xanax which may contribute to sundowning which has been seen here and recurrent falls. Per PDMP she is on this for at least the last several months. Would recommend weaning this off as outpatient slowly. (4) KORI (acute kidney injury): Resolved to normal. (5) CAD (coronary artery disease): Chronic, stable. History of stent placement in the past. Continue medical management including aspirin and beta-autumn. (6) Hypertension: Controlled on current therapy. Continue amlodipine 5 mg daily, carvedilol 6.25 mg twice daily and good pain control efforts. (7) Hypothyroidism: Continue levothyroxine per home regimen. (8) Dementia: End-stage, continue supportive care and reorientation as needed. Continue good day night cycles. Patient has high risk of hospital induced delirium. Recently was on restraints which have been removed. (9) DVT prophylaxis: Aspirin 325 mg p.o. twice daily DNR/DNI Disposition-to [facility] with rehab possibly today. Total Time Total Time Spent Total Time Spent (In Minutes): 35 Discharge Plan Discharge Items Patient Disposition: Transfer Shelter Fac Reason For Visit: Hip Pain Discharge Diagnosis: Closed intertrochanteric fracture of left hip KORI Dementia Acute post-operative blood loss anemia Activity: Per Instructions section Weightbearing: Left toe touch Non-emergency contact: Surgeon Call non-emergency contact if: your pain is not controlled, your temperature is above 101.5, your wound has increased redness and your wound has increased drainage Follow-up/Referrals: Josh Tafoya [Primary Care Provider] - Diet: Regular Addtl Attending Provider Instructions: Take ASPIRIN 325 mg twice daily for 4 weeks or as directed. This is your blood thinner. Follow up with orthopedics as directed. Please call [facility] at [phone] to schedule a follow up appointment 10-14 days from the date of your surgery date. Make sure to read detailed instructions from your orthopedic surgeon below: Addtl Train Brakeman Provider Instructions: [facility] DISCHARGE INSTRUCTIONS: HIP FRACTURE SELF CARE INSTRUCTIONS: A. You are to ambulate with a walker or crutches for approximately 6 weeks. B. You are TOE TOUCH WEIGHT BEARING on your operative lower extremity for at least 6 weeks. C. Wear low heeled shoes with non-slip soles D. Be sure that your floors are free of things that could trip you throw rugs, electrical cords, and small objects. Avoid wet and waxed floors, especially with crutches/walker/cane. E. Try to walk several times a day with rest periods between. F. You may shower 48 hours after surgery and get the incision area wet, but DO NOT soak or submerge incision area in water. (No baths, swimming pools, hot tubs) G. You may have a large, band-aid like dressing over your incision (Aquacel). This will remain on your incision for 7 days, and then can be removed. You CAN shower with this on. If incision is leaking through the dressing, please call the office . H. Do NOT apply soap or any ointment/lotions directly over incision. I. You may use ice as needed to operative site. SPECIAL CARE INSTRUCTIONS: VERY IMPORTANT TO READ AND REVIEW A. You may be at risk for phlebitis or blood clots. a. Wear surgical stockings (JT hose) for 2 weeks after surgery to improve circulation and reduce swelling. b. Take ASPIRIN 325 mg twice daily for 4 weeks or as directed. This is your blood thinner. B. There are a few signs you need to watch for after you are home. Call [facility] at [phone] if you experience any of the following: a. If you have a temperature of 101 degrees or higher. b. Sudden increase in pain in your hip not relieved by rest or pain medication. c. Any fluid or drainage from the incision; redness of the incision. d. Shortness of breath or chest pain. C. Call your physician if: a. Temperature is greater than 101 degrees (F). b. Pain is not relieved by prescribed pain medications. c. Increase drainage or redness from incision. d. Unanswered questions or concerns. D. Pain Medication: a. You will be prescribed pain medication upon discharge that should last till your first post-operative appointment. b. If you experience nausea and/or skin rash, discontinue this medication and contact our office for an alternative medication. c. Caution- narcotic pain medication can cause constipation. FOLLOW UP VISIT: Please call [facility] at [phone] to schedule a follow up appointment 10-14 days from the date of your surgery date. Pending Studies at Discharge: No Stand-Alone Forms: My [facility] Skilled Items Patient informed of condition?: Yes DNR: Yes Discharge Level of Care: Skilled Communicable Disease: No Discharge Prognosis: Stable Lines: None Urinary Catheter: No Medications and DC Order Prescriptions: New aspirin [Ecotrin] 325 mg Tablet,Delayed Release (Dr/Ec) 325 mg PO BID Qty: 60 RF: 0 potassium chloride [Klor-Con M20] 20 mEq Tablet,Er Particles/Crystals 20 meq PO QAM Qty: 30 RF: 0 polyethylene glycol 3350 [Miralax] 17 gram Powder In Packet 17 g PO DAILY PRN (Reason: constipation) Qty: 14 RF: 0 Continued docusate sodium [Colace] 100 mg capsule 100 mg PO BID Qty: 60 RF: 0 acetaminophen 325 mg tablet 650 mg PO Q6 MDD 3g PRN (Reason: temp>101) RF: 0 acetaminophen 325 mg tablet 650 mg PO Q6 MDD 3g PRN (Reason: Pain) RF: 0 amlodipine [Norvasc] 5 mg Tablet 5 mg PO DAILY RF: 0 cholecalciferol (vitamin D3) [Vitamin D3] 25 mcg (1,000 unit) Tablet 25 mcg PO DAILY RF: 0 buspirone 5 mg Tablet 5 mg PO BID RF: 0 carvedilol [Coreg] 6.25 mg tablet 6.25 mg PO BID RF: 0 citalopram 10 mg Tablet 10 mg PO DAILY RF: 0 melatonin 3 mg Tablet 3 mg PO HS RF: 0 citalopram 20 mg tablet 20 mg PO DAILY RF: 0 levothyroxine 125 mcg tablet 125 mcg PO QAM RF: 0 alprazolam [Xanax] 0.5 mg tablet 0.5 mg PO TID RF: 0 Discontinued aspirin 81 mg tablet,chewable 81 mg PO DAILY RF: 0 Discharge Orders: Discharge Order (Routine); Ordered 05/12/21 Ordered By: Flakito Thomas Admission Data Admit Date/Time: 05/04/21 23:26 Attending Provider: Flakito Thomas Admit Provider: Ovidio Young Primary Care Provider: Josh Tafoya Other Providers: Eladio Grayson ; Ovidio Young ; Charles Oden ; Michelet, ; Brennan Sauceda.
[2021-05-12 15:57] VITALS: BP 125/69; PULSE 72
--- NOTE | 2021-05-19 14:04 | Coding Query ---
CODING QUERY To promote full compliance with coding requirements relating to patient care, provider participation is requested in all cases of manufacturing technology professor uncertainty. Please assist us with the question(s) below: Coding Question(s): Patient admitted with fractured hip which was repaired during this IP stay. Pt with mechanical fall. Hospitalist note on 05/05 states closed intertrochanteric fracture was an osteoporotic fracture. Please check below the phrase that describes the left hip fracture. Thanks for your help! Arias Alexander PST SPECIALIST [facility] Physician's Response(s): Pt has an intertrochanteric fracture of the left hip Pt has an osteoporotic fracture of the left hip Cannot Clinically Correlate if fracture is osteoporotic . Other: Please document: __per hospitalist note from 05/05 - _Closed intertrochanteric fracture of the left hip Likely, osteoporotic left femur fracture from ground level fall. Principal Diagnosis: "that condition established after study, to be chiefly responsible for occasioning the admission of the patient to the hospital for care." Co-Existing Principal Diagnosis: "when two or more diagnoses equally meet the criteria for principal diagnosis as determined by the circumstances of admission, diagnostic work up, and/or therapy provided, and the Alphabetic Index, Tabular List, or another coding guideline does not provide sequencing direction, any one of the diagnoses may be sequenced first." "When the physician has documented what appears to be a current diagnosis in the body of the record, but has not included the diagnosis in the final diagnostic statement, the physician should be asked whether the diagnosis should be added." (Source [facility]oding [facility] 2 QTR90. p3-4) ARIANE
== END 2021-05-12 16:00 | DRG 480 ==
LOC: ED 19:07 → SUATTDRO 23:26 → 3N 23:26